=== PATIENT | female | born 1955 | race Two or more races ===

== ENCOUNTER 2022-07-05 17:31 | Inpatient (IN) | payer MEDICAID ==
[~2022-07-05] VITALS: Ht 157.5 cm; Wt 64.2 kg
[2022-07-05 19:12] LABS: Basophils # (auto) 0 10 ^3/uL (0-0.2); Basophils % (auto) 0.5 % (0.0-2.0); Eosinophils # (auto) 0 10 ^3/uL (0-0.8); Monocytes # (auto) 0.1 10 ^3/uL (0-1.3); Monocytes % (auto) 2.4 % (0.0-12.0); Neutrophils # (auto) 5.9 10 ^3/uL (1.6-8.6)
[2022-07-05 19:14] LABS: Eosinophils % (auto) 0.1 % (0.0-7.0); Hematocrit 27.6 % (36.0-46.0); Hemoglobin 8.7 g/dL (12.2-16.2); Lymphocytes # (auto) 0.1 10 ^3/uL (0.4-5.4); Mean Corpuscular Hemoglobin 28.2 pg (28.0-32.0); Mean Corpuscular Hgb Conc. 31.5 g/dL (32.0-36.0); Mean Corpuscular Volume 89.6 fL (80.0-100.0); Nucleated Red Blood Cells % 0.2 %; Red Blood Cells 3.08 10^6/uL (4.0-5.20); White Blood Cell 6.2 10^3/uL (4.4-10.8)
[2022-07-05 19:18] LABS: Red Cell Distribution Width 21.2 % (11.8-14.3)
[2022-07-05 19:35] LABS: Albumin 1.3 g/dL (3.4-5.0); Calcium 7.1 mg/dL (8.5-10.1); Potassium 3.8 mmol/L (3.5-5.1)
[2022-07-05 19:45] LABS: Bilirubin, Total 0.5 mg/dL (0.2-1.0); Total Protein 4.6 g/dL (6.4-8.2)
[2022-07-05 20:54] LABS: BUN/Creatinine Ratio 35.1 (10.0-20.0)
[2022-07-05] MEDS ORDERED: ALBUTEROL SULF 2.5 MG/0.5ML(0.5%) NEB SOLN NEB ONE (21:30)
[2022-07-05] MEDS ORDERED: FUROSEMIDE 20 MG/2 ML VIAL IV ONE (21:30)
[2022-07-05] MEDS ORDERED: ALBUMIN 25% 100 ML IV ONE (21:30)
[2022-07-05] MEDS ORDERED: IOHEXOL 350 MG/ML 100ML IJ ONE (23:23)
[2022-07-06] VITALS (30 sets, daily range): BP systolic 103–132; BP diastolic 48–76
[2022-07-06] MEDS ORDERED: ONDANSETRON HCL 4 MG/2 ML VIAL IV ONE (00:15)
[2022-07-06] MEDS ORDERED: MORPHINE SULFATE 4 MG/ML SYR/VIAL IV ONE (00:15)
[2022-07-06 01:05] LABS: Lactic Acid w/Reflex 4.2 mmol/L (0.4-2.0)
[2022-07-06 01:17] LABS: Urine Bacteria NONE SEEN /hpf (None Seen); Urine Blood Negative /uL (Negative); Urine Hyaline Cast FEW /lpf (0 - 2); Urine Specific Gravity 1.018 (1.001-1.035); Urine WBC 1 /hpf (0 - 5)
[2022-07-06] MEDS ORDERED: NITROGLYCERIN 0.4 MG SL TAB SL PRN (02:30)
[2022-07-06] MEDS: AZITHROMYCIN 500MG/ 250ML 250 ML IV SCH ×2 (03:15→22:00)
[2022-07-06] MEDS: cefTRIAXone 1GM/50ML D5W 50 ML IV SCH ×2 (03:19→21:00)
[2022-07-06] MEDS: ALBUMIN 25% 100 ML IV SCH ×3 (04:26→05:35)
[2022-07-06] MEDS: FUROSEMIDE 20 MG/2 ML VIAL IV SCH ×2 (08:34→20:40)
[2022-07-06 08:49] LABS: INR 1.39 (0.9-1.15); Partial Thromboplastin Time 54.9 sec (24.6-33.4)
[2022-07-06] MEDS: CLOPIDOGREL BISULFATE 75 MG TAB PO SCH (09:57)
[2022-07-06] MEDS: ASPirin 81 mg TAB PO SCH (09:57)
[2022-07-06] MEDS: ENOXAPARIN SOD 40 MG/0.4 ML SYRINGE SC SCH (09:58)
[2022-07-06] MEDS ORDERED: methylPREDNISolone SOD SUCC 125 MG/2 ML VL IV SCH (10:00)
[2022-07-06] MEDS ORDERED: amLODIPine BESYLATE 5 MG TAB PO SCH (10:00)
[2022-07-06] MEDS: ANAKINRA SC SCH ×2 (10:00→12:29)
[2022-07-06] MEDS ORDERED: PANTOPRAZOLE 40 MG TAB PO SCH (10:00)
[2022-07-06] MEDS: ZINC SULFATE 220mg CAP or TAB PO SCH (10:51)
[2022-07-06] MEDS: GABAPENTIN 100 MG CAP PO SCH (10:51)
[2022-07-06] MEDS: MULTIPLE VITAMIN TAB PO SCH (10:51)
[2022-07-06] MEDS: ASCORBIC ACID 500 MG TAB PO SCH ×2 (10:53→22:00)
[2022-07-06] MEDS ORDERED: ACET325T10 PO (13:09)
[2022-07-06] MEDS ORDERED: FURO20TA3 PO (13:09)
[2022-07-06] MEDS ORDERED: OYST500T48 OR (13:09)
[2022-07-06] MEDS ORDERED: AMLO-489 PO (13:09)
[2022-07-06] MEDS ORDERED: SULF400T PO (13:09)
[2022-07-06] MEDS ORDERED: CLOP75TA70 PO (13:09)
[2022-07-06] MEDS ORDERED: THIA100T5 PO (13:09)
[2022-07-06] MEDS ORDERED: MELA2.5C2 OR (13:09)
[2022-07-06] MEDS ORDERED: PANT40T PO (13:09)
[2022-07-06] MEDS ORDERED: LINE1TAB10 PO (13:09)
[2022-07-06] MEDS ORDERED: TELM1TAB37 PO (13:09)
[2022-07-06] MEDS ORDERED: GAB100C GT (13:09)
[2022-07-06] MEDS ORDERED: PRED2.5T4 PO (13:09)
[2022-07-06] MEDS ORDERED: VANC125C3 PO (13:09)
[2022-07-06] MEDS ORDERED: MULT-624 OR (13:09)
[2022-07-06] MEDS ORDERED: REMDESIVIR PER PHARMACY 0 ML IV SCH (14:15)
[2022-07-06] MEDS ORDERED: REMDESIVIR 200 MG in NS 210ml LOADING DOSE ADULT IV ONE (15:00)
[2022-07-06] MEDS ORDERED: SODIUM BICARBONATE 8.4 % INJ 50ML VIAL IV ONE (15:30)
[2022-07-06] MEDS: ONDANSETRON HCL 4 MG/2 ML VIAL IV PRN (15:55)
[2022-07-06] MEDS: LORazepam 2MG/ML-1ML VIAL IV PRN ×2 (15:55→21:55)
[2022-07-06] MEDS ORDERED: PPN PER PHARMACY 0 ML IV SCH (16:15)
[2022-07-06 17:06] LABS: Albumin 2.5 g/dL (3.4-5.0); Calcium 7.2 mg/dL (8.5-10.1); Magnesium 1.9 mg/dL (1.6-2.6); Potassium 3.1 mmol/L (3.5-5.1)
[2022-07-06 17:09] LABS: BUN/Creatinine Ratio 43.1 (10.0-20.0); Phosphorus 4.1 mg/dL (2.5-4.90); Total Protein 4.4 g/dL (6.4-8.2)
[2022-07-06] MEDS ORDERED: POTASSIUM CHL 20MEQ/100ML 100 ML IV ONE (18:00)
[2022-07-06] MEDS: AMINO ACID INFUSION IN D10W 1,000 ML IV NR (20:00)
[2022-07-07] VITALS (85 sets, daily range): BP systolic 91–125; BP diastolic 44–65
[2022-07-07] MEDS ORDERED: ATOR-47 PO (00:53)
[2022-07-07] MEDS ORDERED: FOLI1TAB6 PO (00:53)
[2022-07-07] MEDS: ALBUTEROL SULF 2.5 MG/0.5ML(0.5%) NEB SOLN NEB PRN ×2 (05:43→19:00)
[2022-07-07] MEDS: FUROSEMIDE 20 MG/2 ML VIAL IV SCH ×2 (06:00→21:11)
[2022-07-07 06:06] LABS: Potassium 3.6 mmol/L (3.5-5.1)
[2022-07-07 06:12] LABS: Albumin 2.4 g/dL (3.4-5.0); BUN/Creatinine Ratio 37.7 (10.0-20.0); Bilirubin, Total 0.7 mg/dL (0.2-1.0); Calcium 7.2 mg/dL (8.5-10.1); Magnesium 1.8 mg/dL (1.6-2.6); Phosphorus 4.6 mg/dL (2.5-4.90); Total Protein 4.1 g/dL (6.4-8.2)
[2022-07-07 08:21] LABS: Basophils # (auto) 0 10 ^3/uL (0-0.2); Nucleated Red Blood Cells % 0.8 %
[2022-07-07 08:23] LABS: Basophils % (auto) 0.5 % (0.0-2.0); Eosinophils # (auto) 0.1 10 ^3/uL (0-0.8); Eosinophils % (auto) 3.5 % (0.0-7.0); Hematocrit 17.7 % (36.0-46.0); Lymphocytes # (auto) 0.2 10 ^3/uL (0.4-5.4); Lymphocytes % (auto) 7.1 % (10.0-50.0); Mean Corpuscular Hemoglobin 29.2 pg (28.0-32.0); Mean Corpuscular Hgb Conc. 33.9 g/dL (32.0-36.0); Monocytes # (auto) 0.2 10 ^3/uL (0-1.3); Monocytes % (auto) 4.8 % (0.0-12.0); Neutrophils # (auto) 2.7 10 ^3/uL (1.6-8.6); Neutrophils % (auto) 84.1 % (37.0-80.0); Red Blood Cells 2.06 10^6/uL (4.0-5.20); White Blood Cell 3.2 10^3/uL (4.4-10.8)
[2022-07-07 08:34] LABS: Red Cell Distribution Width 20.1 % (11.8-14.3)
[2022-07-07] MEDS: LORazepam 2MG/ML-1ML VIAL IV PRN (08:48)
[2022-07-07] MEDS: MULTIPLE VITAMIN TAB PO SCH (10:00)
[2022-07-07] MEDS: ZINC SULFATE 220mg CAP or TAB PO SCH (10:00)
[2022-07-07] MEDS: GABAPENTIN 100 MG CAP PO SCH (10:00)
[2022-07-07] MEDS: CLOPIDOGREL BISULFATE 75 MG TAB PO SCH (10:00)
[2022-07-07] MEDS: ASPirin 81 mg TAB PO SCH (10:00)
[2022-07-07] MEDS: ASCORBIC ACID 500 MG TAB PO SCH ×2 (10:00→22:00)
[2022-07-07] MEDS ORDERED: FUROSEMIDE 20 MG/2 ML VIAL IV ONE (10:15)
[2022-07-07] MEDS: PANTOPRAZOLE 40 MG/10 ML VIAL INJ IV SCH (10:37)
[2022-07-07] MEDS: DexAMETHasone SOD PHOS 10MG/1ML VIAL INJ IV SCH (10:37)
[2022-07-07] MEDS: ANAKINRA SC SCH (10:37)
[2022-07-07 10:55] LABS: % Iron Saturation 74.4 % (15-50)
[2022-07-07] MEDS: ENOXAPARIN SOD 40 MG/0.4 ML SYRINGE SC SCH (11:03)
[2022-07-07 11:14] LABS: Ferritin > 1650.0 ng/mL (10-322)
[2022-07-07 11:15] LABS: Folate (Folic Acid) 22.32 ng/mL (5.38-24)
[2022-07-07] MEDS ORDERED: DEXTROSE (50%) 50ML SYRG IV SCH (12:00)
[2022-07-07] MEDS: InsuLIN REG 1unit/0.01ml Soln (100units/ml) SC SCH ×2 (13:00→18:26)
[2022-07-07] MEDS: ACCU-CHEK COMFORT CURVE STRIP VI SCH ×2 (13:00→18:08)
[2022-07-07] MEDS: AMINO ACID INFUSION IN D10W 1,000 ML IV NR (19:49)
[2022-07-07] MEDS ORDERED: PPN PER PHARMACY IV NR ×8 (20:00)
[2022-07-07] MEDS: REMDESIVIR 100mg 100 MG in SODIUM CHL 0.9% 230 ML IV SCH (21:10)
[2022-07-07] MEDS: cefTRIAXone 1GM/50ML D5W 50 ML IV SCH (23:02)
[2022-07-08] VITALS (35 sets, daily range): BP systolic 101–192; BP diastolic 39–100
[2022-07-08] MEDS: AZITHROMYCIN 500MG/ 250ML 250 ML IV SCH ×2 (00:39→22:09)
[2022-07-08] MEDS: ACCU-CHEK COMFORT CURVE STRIP VI SCH ×5 (00:39→23:18)
[2022-07-08] MEDS: InsuLIN REG 1unit/0.01ml Soln (100units/ml) SC SCH ×5 (00:40→23:16)
[2022-07-08] MEDS ORDERED: LORazepam 2MG/ML-1ML VIAL IV ONE (03:00)
[2022-07-08] MEDS: MORPHINE SULFATE INJ 2 MG/ml SYRG IV PRN ×2 (04:20→22:56)
[2022-07-08] MEDS: FUROSEMIDE 20 MG/2 ML VIAL IV SCH (06:22)
[2022-07-08 06:27] LABS: BUN/Creatinine Ratio 36.5 (10.0-20.0); Bilirubin, Total 0.9 mg/dL (0.2-1.0); Calcium 7.6 mg/dL (8.5-10.1); Magnesium 1.5 mg/dL (1.6-2.6); Phosphorus 2.1 mg/dL (2.5-4.90); Total Protein 4.1 g/dL (6.4-8.2)
[2022-07-08 06:46] LABS: Potassium 2.7 mmol/L (3.5-5.1)
[2022-07-08] MEDS: POTASSIUM CHL 20MEQ/100ML 100 ML IV SCH ×2 (07:46→09:00)
[2022-07-08 08:29] LABS: Basophils # (auto) 0 10 ^3/uL (0-0.2); Basophils % (auto) 0.3 % (0.0-2.0); Eosinophils # (auto) 0 10 ^3/uL (0-0.8); Eosinophils % (auto) 0.1 % (0.0-7.0); Lymphocytes # (auto) 0.3 10 ^3/uL (0.4-5.4); Mean Corpuscular Hgb Conc. 34.2 g/dL (32.0-36.0); Monocytes # (auto) 0.3 10 ^3/uL (0-1.3); Neutrophils # (auto) 3.2 10 ^3/uL (1.6-8.6); White Blood Cell 3.7 10^3/uL (4.4-10.8)
[2022-07-08 08:31] LABS: Hematocrit 30.8 % (36.0-46.0); Hemoglobin 10.5 g/dL (12.2-16.2); Lymphocytes % (auto) 7.6 % (10.0-50.0); Mean Corpuscular Hemoglobin 28.8 pg (28.0-32.0); Mean Corpuscular Volume 84.4 fL (80.0-100.0); Monocytes % (auto) 7.5 % (0.0-12.0); Neutrophils % (auto) 84.5 % (37.0-80.0); Red Blood Cells 3.65 10^6/uL (4.0-5.20); Red Cell Distribution Width 17.9 % (11.8-14.3)
[2022-07-08] MEDS: LORazepam 2MG/ML-1ML VIAL IV PRN ×2 (09:37)
[2022-07-08] MEDS: PANTOPRAZOLE 40 MG/10 ML VIAL INJ IV SCH (09:51)
[2022-07-08] MEDS: MAGNESIUM SULFATE 1GM/100ML 100 ML IV SCH ×2 (09:52→11:24)
[2022-07-08] MEDS: DexAMETHasone SOD PHOS 10MG/1ML VIAL INJ IV SCH (09:52)
[2022-07-08] MEDS: ASCORBIC ACID 500 MG TAB PO SCH ×2 (10:00→21:21)
[2022-07-08] MEDS: CLOPIDOGREL BISULFATE 75 MG TAB PO SCH (10:00)
[2022-07-08] MEDS: MULTIPLE VITAMIN TAB PO SCH (10:00)
[2022-07-08] MEDS: ZINC SULFATE 220mg CAP or TAB PO SCH (10:00)
[2022-07-08] MEDS: ASPirin 81 mg TAB PO SCH (10:00)
[2022-07-08] MEDS: CHOLECALCIFEROL (VITD3) 2,000 UNIT CAP/TAB PO SCH (10:00)
[2022-07-08] MEDS: GABAPENTIN 100 MG CAP PO SCH (10:00)
[2022-07-08] MEDS ORDERED: LIDOCAINE 1% (LOCAL ANESTH.) PF 5ml SDV ID ONE (11:00)
[2022-07-08] MEDS: ANAKINRA SC SCH (11:26)
[2022-07-08] MEDS ORDERED: POTASSIUM PHOSPHATE 44 MEQ in D5W 5% 250 ML IV ONE (12:00)
[2022-07-08] MEDS ORDERED: TPN PER PHARMACY 0 ML IV SCH (13:15)
[2022-07-08] MEDS: LABETALOL HCL 5 MG/ML 4ML SYRINGE IV PRN ×2 (13:41→16:55)
[2022-07-08] MEDS: REMDESIVIR 100mg 100 MG in SODIUM CHL 0.9% 230 ML IV SCH (15:00)
[2022-07-08] MEDS: FUROSEMIDE 40 MG/4 ML VIAL IV SCH (17:56)
[2022-07-08] MEDS ORDERED: TPN PER PHARMACY IV NR ×10 (20:00)
[2022-07-08] MEDS: SODIUM CHLOR 0.9% PF (SALINE LOCK) 10ML VIAL/SYR IV SCH (21:25)
[2022-07-08] MEDS: cefTRIAXone 1GM/50ML D5W 50 ML IV SCH (21:25)
[2022-07-09] VITALS (31 sets, daily range): BP systolic 106–178; BP diastolic 56–100
[2022-07-09] MEDS: FUROSEMIDE 40 MG/4 ML VIAL IV SCH ×2 (06:09→17:41)
[2022-07-09] MEDS: InsuLIN REG 1unit/0.01ml Soln (100units/ml) SC SCH ×3 (06:11→17:42)
[2022-07-09] MEDS: ACCU-CHEK COMFORT CURVE STRIP VI SCH ×3 (06:11→17:41)
[2022-07-09] MEDS: MORPHINE SULFATE INJ 2 MG/ml SYRG IV PRN ×4 (06:18→21:14)
[2022-07-09 06:24] LABS: Albumin 2.2 g/dL (3.4-5.0); Calcium 7.6 mg/dL (8.5-10.1); Potassium 3.1 mmol/L (3.5-5.1)
[2022-07-09 06:41] LABS: BUN/Creatinine Ratio 43.4 (10.0-20.0); Bilirubin, Total 0.9 mg/dL (0.2-1.0); Phosphorus 1.8 mg/dL (2.5-4.90); Total Protein 4.2 g/dL (6.4-8.2)
[2022-07-09] MEDS ORDERED: POTASSIUM CHL 20MEQ/100ML 100 ML IV ONE (09:00)
[2022-07-09] MEDS: SODIUM CHLOR 0.9% PF (SALINE LOCK) 10ML VIAL/SYR IV SCH ×2 (09:49→21:16)
[2022-07-09] MEDS: PANTOPRAZOLE 40 MG/10 ML VIAL INJ IV SCH (09:49)
[2022-07-09] MEDS: DexAMETHasone SOD PHOS 10MG/1ML VIAL INJ IV SCH (09:49)
[2022-07-09] MEDS: ANAKINRA SC SCH (09:52)
[2022-07-09] MEDS: CHOLECALCIFEROL (VITD3) 2,000 UNIT CAP/TAB PO SCH (10:00)
[2022-07-09] MEDS: MULTIPLE VITAMIN TAB PO SCH (10:00)
[2022-07-09] MEDS: GABAPENTIN 100 MG CAP PO SCH (10:00)
[2022-07-09] MEDS: ASCORBIC ACID 500 MG TAB PO SCH ×2 (10:00→21:16)
[2022-07-09] MEDS: ZINC SULFATE 220mg CAP or TAB PO SCH (10:00)
[2022-07-09] MEDS ORDERED: LINEZOLID 600MG/300ML 300 ML IV SCH (10:00)
[2022-07-09] MEDS: CLOPIDOGREL BISULFATE 75 MG TAB PO SCH (10:00)
[2022-07-09] MEDS: ASPirin 81 mg TAB PO SCH (10:00)
[2022-07-09] MEDS ORDERED: POTASSIUM PHOSPHATE 44 MEQ in D5W 5% 250 ML IV ONE (11:00)
[2022-07-09] MEDS ORDERED: VANCOMYCIN PER PHARMACY 0 MG IV SCH (14:00)
[2022-07-09] MEDS: CEFEPIME 1GM/ 50ML 50 ML IV SCH ×2 (14:17→22:24)
[2022-07-09] MEDS: VANCOMYCIN 1GM/250ML 250 ML IV SCH (17:21)
[2022-07-09] MEDS ORDERED: TPN PER PHARMACY IV NR ×11 (20:00)
[2022-07-09] MEDS: ALBUTEROL SULF 2.5 MG/0.5ML(0.5%) NEB SOLN NEB PRN (22:22)
[2022-07-10] VITALS (33 sets, daily range): BP systolic 128–154; BP diastolic 70–89
[2022-07-10] MEDS: ACCU-CHEK COMFORT CURVE STRIP VI SCH ×4 (00:20→18:05)
[2022-07-10] MEDS: VANCOMYCIN 1GM/250ML 250 ML IV SCH ×2 (05:00→19:01)
[2022-07-10] MEDS: CEFEPIME 1GM/ 50ML 50 ML IV SCH ×3 (05:57→22:01)
[2022-07-10] MEDS: FUROSEMIDE 40 MG/4 ML VIAL IV SCH ×2 (05:57→18:05)
[2022-07-10] MEDS: InsuLIN REG 1unit/0.01ml Soln (100units/ml) SC SCH ×4 (05:58→18:06)
[2022-07-10] MEDS: MORPHINE SULFATE INJ 2 MG/ml SYRG IV PRN ×4 (06:20→20:46)
[2022-07-10 06:30] LABS: Basophils # (auto) 0 10 ^3/uL (0-0.2); Eosinophils # (auto) 0 10 ^3/uL (0-0.8); Eosinophils % (auto) 0.1 % (0.0-7.0); Hemoglobin 11.6 g/dL (12.2-16.2); Lymphocytes # (auto) 0.4 10 ^3/uL (0.4-5.4); Monocytes # (auto) 0.3 10 ^3/uL (0-1.3)
[2022-07-10 06:33] LABS: Basophils % (auto) 0.2 % (0.0-2.0); Hematocrit 34.4 % (36.0-46.0); Lymphocytes % (auto) 7.2 % (10.0-50.0); Mean Corpuscular Hemoglobin 28.1 pg (28.0-32.0); Mean Corpuscular Hgb Conc. 33.6 g/dL (32.0-36.0); Mean Corpuscular Volume 83.7 fL (80.0-100.0); Monocytes % (auto) 6.2 % (0.0-12.0); Neutrophils # (auto) 4.7 10 ^3/uL (1.6-8.6); Neutrophils % (auto) 86.3 % (37.0-80.0); Nucleated Red Blood Cells % 0.6 %; Red Blood Cells 4.12 10^6/uL (4.0-5.20); Red Cell Distribution Width 18.7 % (11.8-14.3); White Blood Cell 5.5 10^3/uL (4.4-10.8)
[2022-07-10 06:36] LABS: Calcium 7.5 mg/dL (8.5-10.1); Magnesium 1.7 mg/dL (1.6-2.6); Potassium 3.6 mmol/L (3.5-5.1)
[2022-07-10 06:52] LABS: BUN/Creatinine Ratio 54.2 (10.0-20.0); Bilirubin, Total 1.1 mg/dL (0.2-1.0); Phosphorus 2.4 mg/dL (2.5-4.90); Total Protein 4.4 g/dL (6.4-8.2)
[2022-07-10] MEDS: PANTOPRAZOLE 40 MG/10 ML VIAL INJ IV SCH (09:45)
[2022-07-10] MEDS: SODIUM CHLOR 0.9% PF (SALINE LOCK) 10ML VIAL/SYR IV SCH ×2 (09:45→22:01)
[2022-07-10] MEDS: DexAMETHasone SOD PHOS 10MG/1ML VIAL INJ IV SCH (09:45)
[2022-07-10] MEDS: GABAPENTIN 100 MG CAP PO SCH (10:00)
[2022-07-10] MEDS: MULTIPLE VITAMIN TAB PO SCH (10:00)
[2022-07-10] MEDS: ASCORBIC ACID 500 MG TAB PO SCH ×2 (10:00→22:00)
[2022-07-10] MEDS: FLORASTOR (S. BOULARDII) 250 MG CAP PO SCH (10:00)
[2022-07-10] MEDS: CHOLECALCIFEROL (VITD3) 2,000 UNIT CAP/TAB PO SCH (10:00)
[2022-07-10] MEDS: CLOPIDOGREL BISULFATE 75 MG TAB PO SCH (10:00)
[2022-07-10] MEDS: ZINC SULFATE 220mg CAP or TAB PO SCH (10:00)
[2022-07-10] MEDS: ASPirin 81 mg TAB PO SCH (10:00)
[2022-07-10] MEDS: TROLAMINE SALICYLATE 10% TOP CREAM TOP PRN (11:11)
[2022-07-10] MEDS ORDERED: TPN PER PHARMACY IV NR ×12 (20:00)
[2022-07-11] VITALS (33 sets, daily range): BP systolic 129–166; BP diastolic 73–94
[2022-07-11] MEDS: ACCU-CHEK COMFORT CURVE STRIP VI SCH ×5 (00:07→23:38)
[2022-07-11] MEDS: MORPHINE SULFATE INJ 2 MG/ml SYRG IV PRN ×3 (03:48→21:23)
[2022-07-11] MEDS: InsuLIN REG 1unit/0.01ml Soln (100units/ml) SC SCH ×5 (06:29→23:40)
[2022-07-11] MEDS: FUROSEMIDE 40 MG/4 ML VIAL IV SCH ×2 (06:35→17:59)
[2022-07-11] MEDS: CEFEPIME 1GM/ 50ML 50 ML IV SCH ×3 (06:36→22:00)
[2022-07-11 07:25] LABS: Calcium 7.8 mg/dL (8.5-10.1); Magnesium 2.1 mg/dL (1.6-2.6); Potassium 3.3 mmol/L (3.5-5.1)
[2022-07-11 07:42] LABS: Bilirubin, Total 1.3 mg/dL (0.2-1.0); Phosphorus 2.7 mg/dL (2.5-4.90); Total Protein 4.6 g/dL (6.4-8.2)
[2022-07-11] MEDS: POTASSIUM CHL 20MEQ/100ML 100 ML IV SCH ×2 (08:50→11:53)
[2022-07-11] MEDS: VANCOMYCIN 1GM/250ML 250 ML IV SCH (09:00)
[2022-07-11] MEDS: DexAMETHasone SOD PHOS 10MG/1ML VIAL INJ IV SCH (09:55)
[2022-07-11] MEDS: PANTOPRAZOLE 40 MG/10 ML VIAL INJ IV SCH (09:55)
[2022-07-11] MEDS: SODIUM CHLOR 0.9% PF (SALINE LOCK) 10ML VIAL/SYR IV SCH ×2 (09:59→21:24)
[2022-07-11] MEDS: CHOLECALCIFEROL (VITD3) 2,000 UNIT CAP/TAB PO SCH (10:00)
[2022-07-11] MEDS: ZINC SULFATE 220mg CAP or TAB PO SCH (10:00)
[2022-07-11] MEDS: MULTIPLE VITAMIN TAB PO SCH (10:00)
[2022-07-11] MEDS: CLOPIDOGREL BISULFATE 75 MG TAB PO SCH (10:00)
[2022-07-11] MEDS: ASPirin 81 mg TAB PO SCH (10:00)
[2022-07-11] MEDS: ASCORBIC ACID 500 MG TAB PO SCH ×2 (10:00→22:00)
[2022-07-11] MEDS: GABAPENTIN 100 MG CAP PO SCH (10:00)
[2022-07-11] MEDS ORDERED: ACYCLOVIR 5MG/KG Q8HR PER RX 0 ML IV SCH (10:00)
[2022-07-11] MEDS: FLORASTOR (S. BOULARDII) 250 MG CAP PO SCH (10:00)
[2022-07-11] MEDS: ACYCLOVIR SOD 50MG/ML 250 MG in D5W 5% 100 ML IV SCH ×2 (12:25→21:24)
[2022-07-11] MEDS: LORazepam 2MG/ML-1ML VIAL IV PRN (14:40)
[2022-07-11] MEDS: TPN PER PHARMACY IV NR ×12 (19:59)
[2022-07-11] MEDS: LABETALOL HCL 5 MG/ML 4ML SYRINGE IV PRN ×2 (21:30→22:41)
[2022-07-12] VITALS (30 sets, daily range): BP systolic 113–173; BP diastolic 66–93
[2022-07-12] MEDS: LORazepam 2MG/ML-1ML VIAL IV PRN ×2 (01:15→18:20)
[2022-07-12] MEDS: LABETALOL HCL 5 MG/ML 4ML SYRINGE IV PRN (02:06)
[2022-07-12] MEDS: FUROSEMIDE 40 MG/4 ML VIAL IV SCH ×2 (06:00→18:15)
[2022-07-12] MEDS: ACCU-CHEK COMFORT CURVE STRIP VI SCH ×3 (06:01→18:43)
[2022-07-12] MEDS: CEFEPIME 1GM/ 50ML 50 ML IV SCH ×2 (06:01→14:06)
[2022-07-12] MEDS: InsuLIN REG 1unit/0.01ml Soln (100units/ml) SC SCH ×3 (06:02→18:44)
[2022-07-12 06:09] LABS: Basophils # (auto) 0 10 ^3/uL (0-0.2); Eosinophils # (auto) 0 10 ^3/uL (0-0.8); Eosinophils % (auto) 0.2 % (0.0-7.0); Hematocrit 32.6 % (36.0-46.0); Lymphocytes # (auto) 0.3 10 ^3/uL (0.4-5.4); Monocytes # (auto) 0.8 10 ^3/uL (0-1.3); Neutrophils # (auto) 3.9 10 ^3/uL (1.6-8.6)
[2022-07-12 06:11] LABS: Basophils % (auto) 0.5 % (0.0-2.0); Hemoglobin 10.7 g/dL (12.2-16.2); Lymphocytes % (auto) 5.9 % (10.0-50.0); Mean Corpuscular Hemoglobin 28.1 pg (28.0-32.0); Mean Corpuscular Hgb Conc. 32.8 g/dL (32.0-36.0); Mean Corpuscular Volume 85.6 fL (80.0-100.0); Monocytes % (auto) 16.3 % (0.0-12.0); Neutrophils % (auto) 77.1 % (37.0-80.0); Nucleated Red Blood Cells % 0.2 %; Red Cell Distribution Width 18.6 % (11.8-14.3)
[2022-07-12 07:09] LABS: Albumin 2.2 g/dL (3.4-5.0); Calcium 7.9 mg/dL (8.5-10.1); Magnesium 2.1 mg/dL (1.6-2.6); Potassium 3.8 mmol/L (3.5-5.1)
[2022-07-12 07:12] LABS: BUN/Creatinine Ratio 122.9 (10.0-20.0)
[2022-07-12 07:26] LABS: Bilirubin, Total 1.5 mg/dL (0.2-1.0); Phosphorus 3.4 mg/dL (2.5-4.90); Total Protein 4.5 g/dL (6.4-8.2)
[2022-07-12] MEDS: DexAMETHasone SOD PHOS 10MG/1ML VIAL INJ IV SCH (09:28)
[2022-07-12] MEDS: PANTOPRAZOLE 40 MG/10 ML VIAL INJ IV SCH (09:28)
[2022-07-12] MEDS: SODIUM CHLOR 0.9% PF (SALINE LOCK) 10ML VIAL/SYR IV SCH ×2 (09:29→23:05)
[2022-07-12] MEDS: FLORASTOR (S. BOULARDII) 250 MG CAP PO SCH (10:00)
[2022-07-12] MEDS: ASPirin 81 mg TAB PO SCH (10:00)
[2022-07-12] MEDS: MULTIPLE VITAMIN TAB PO SCH (10:00)
[2022-07-12] MEDS: GABAPENTIN 100 MG CAP PO SCH (10:00)
[2022-07-12] MEDS: ZINC SULFATE 220mg CAP or TAB PO SCH (10:00)
[2022-07-12] MEDS ORDERED: VANCOMYCIN 1GM/250ML 250 ML IV SCH (10:00)
[2022-07-12] MEDS: ASCORBIC ACID 500 MG TAB PO SCH ×2 (10:00→22:00)
[2022-07-12] MEDS: CHOLECALCIFEROL (VITD3) 2,000 UNIT CAP/TAB PO SCH (10:00)
[2022-07-12] MEDS: CLOPIDOGREL BISULFATE 75 MG TAB PO SCH (10:00)
[2022-07-12] MEDS: ACYCLOVIR SOD 50MG/ML 250 MG in D5W 5% 100 ML IV SCH ×2 (11:00→23:04)
[2022-07-12] MEDS: TPN PER PHARMACY IV NR ×12 (19:45)
[2022-07-12] MEDS ORDERED: TPN PER PHARMACY IV NR ×21 (20:00)
[2022-07-13] VITALS (30 sets, daily range): BP systolic 112–170; BP diastolic 58–95
[2022-07-13] MEDS: CEFEPIME 1GM/ 50ML 50 ML IV SCH ×4 (00:28→23:17)
[2022-07-13] MEDS: ACCU-CHEK COMFORT CURVE STRIP VI SCH ×4 (00:28→18:07)
[2022-07-13] MEDS: InsuLIN REG 1unit/0.01ml Soln (100units/ml) SC SCH ×4 (00:31→18:29)
[2022-07-13 04:50] LABS: Basophils # (auto) 0 10 ^3/uL (0-0.2); Eosinophils # (auto) 0 10 ^3/uL (0-0.8); Hemoglobin 9.7 g/dL (12.2-16.2); Lymphocytes # (auto) 0.3 10 ^3/uL (0.4-5.4); Monocytes # (auto) 0.8 10 ^3/uL (0-1.3); White Blood Cell 4.5 10^3/uL (4.4-10.8)
[2022-07-13] MEDS: LORazepam 2MG/ML-1ML VIAL IV PRN (04:51)
[2022-07-13 04:53] LABS: Basophils % (auto) 0.2 % (0.0-2.0); Eosinophils % (auto) 0.1 % (0.0-7.0); Hematocrit 31.3 % (36.0-46.0); Lymphocytes % (auto) 6.3 % (10.0-50.0); Mean Corpuscular Hemoglobin 29.4 pg (28.0-32.0); Mean Corpuscular Hgb Conc. 31.1 g/dL (32.0-36.0); Mean Corpuscular Volume 94.6 fL (80.0-100.0); Monocytes % (auto) 17.9 % (0.0-12.0); Neutrophils # (auto) 3.4 10 ^3/uL (1.6-8.6); Neutrophils % (auto) 75.5 % (37.0-80.0); Nucleated Red Blood Cells % 0.1 %; Red Blood Cells 3.31 10^6/uL (4.0-5.20)
[2022-07-13] MEDS: FUROSEMIDE 40 MG/4 ML VIAL IV SCH (06:20)
[2022-07-13 09:36] LABS: Potassium 3.5 mmol/L (3.5-5.1)
[2022-07-13] MEDS: CLOPIDOGREL BISULFATE 75 MG TAB PO SCH (10:00)
[2022-07-13] MEDS: CHOLECALCIFEROL (VITD3) 2,000 UNIT CAP/TAB PO SCH (10:00)
[2022-07-13] MEDS: ASCORBIC ACID 500 MG TAB PO SCH ×2 (10:00→21:55)
[2022-07-13] MEDS: ZINC SULFATE 220mg CAP or TAB PO SCH (10:00)
[2022-07-13] MEDS: ASPirin 81 mg TAB PO SCH (10:00)
[2022-07-13] MEDS: GABAPENTIN 100 MG CAP PO SCH (10:00)
[2022-07-13] MEDS: MULTIPLE VITAMIN TAB PO SCH (10:00)
[2022-07-13] MEDS: FLORASTOR (S. BOULARDII) 250 MG CAP PO SCH (10:00)
[2022-07-13 10:18] LABS: Albumin 2.1 g/dL (3.4-5.0); BUN/Creatinine Ratio 137.1 (10.0-20.0); Bilirubin, Total 1.8 mg/dL (0.2-1.0); Calcium 8.4 mg/dL (8.5-10.1); Magnesium 2.6 mg/dL (1.6-2.6); Phosphorus 2.6 mg/dL (2.5-4.90)
[2022-07-13] MEDS: DexAMETHasone SOD PHOS 10MG/1ML VIAL INJ IV SCH (10:23)
[2022-07-13] MEDS: ACYCLOVIR SOD 50MG/ML 250 MG in D5W 5% 100 ML IV SCH ×2 (10:28→21:54)
[2022-07-13] MEDS: PANTOPRAZOLE 40 MG/10 ML VIAL INJ IV SCH (10:28)
[2022-07-13] MEDS: SODIUM CHLOR 0.9% PF (SALINE LOCK) 10ML VIAL/SYR IV SCH ×2 (10:37→21:54)
[2022-07-13] MEDS: MORPHINE SULFATE INJ 2 MG/ml SYRG IV PRN (11:38)
[2022-07-13] MEDS ORDERED: TPN PER PHARMACY IV NR ×11 (20:00)
[2022-07-14] VITALS (42 sets, daily range): BP systolic 121–167; BP diastolic 61–83
[2022-07-14] MEDS: ACCU-CHEK COMFORT CURVE STRIP VI SCH ×4 (00:16→17:47)
[2022-07-14] MEDS: InsuLIN REG 1unit/0.01ml Soln (100units/ml) SC SCH ×4 (00:34→17:48)
[2022-07-14 05:32] LABS: Potassium 4.2 mmol/L (3.5-5.1)
[2022-07-14 05:52] LABS: BUN/Creatinine Ratio 141.2 (10.0-20.0); Bilirubin, Total 1.4 mg/dL (0.2-1.0); Calcium 7.9 mg/dL (8.5-10.1); Magnesium 2.7 mg/dL (1.6-2.6); Phosphorus 2.5 mg/dL (2.5-4.90); Total Protein 4.3 g/dL (6.4-8.2)
[2022-07-14] MEDS: CEFEPIME 1GM/ 50ML 50 ML IV SCH ×2 (06:05→15:30)
[2022-07-14 08:17] LABS: Basophils # (auto) 0 10 ^3/uL (0-0.2); Eosinophils # (auto) 0 10 ^3/uL (0-0.8); Hematocrit 27.8 % (36.0-46.0); Lymphocytes # (auto) 0.2 10 ^3/uL (0.4-5.4); Monocytes # (auto) 0.8 10 ^3/uL (0-1.3); Neutrophils # (auto) 4.4 10 ^3/uL (1.6-8.6); Nucleated Red Blood Cells % 0.1 %; Red Blood Cells 3.21 10^6/uL (4.0-5.20); White Blood Cell 5.5 10^3/uL (4.4-10.8)
[2022-07-14 08:19] LABS: Basophils % (auto) 0.2 % (0.0-2.0); Hemoglobin 9.3 g/dL (12.2-16.2); Mean Corpuscular Hgb Conc. 33.5 g/dL (32.0-36.0); Mean Corpuscular Volume 86.6 fL (80.0-100.0); Neutrophils % (auto) 80.8 % (37.0-80.0); Red Cell Distribution Width 18.8 % (11.8-14.3)
[2022-07-14] MEDS: CHOLECALCIFEROL (VITD3) 2,000 UNIT CAP/TAB PO SCH (10:00)
[2022-07-14] MEDS: CLOPIDOGREL BISULFATE 75 MG TAB PO SCH (10:00)
[2022-07-14] MEDS: ZINC SULFATE 220mg CAP or TAB PO SCH (10:00)
[2022-07-14] MEDS: ASCORBIC ACID 500 MG TAB PO SCH ×2 (10:00→22:00)
[2022-07-14] MEDS: GABAPENTIN 100 MG CAP PO SCH (10:00)
[2022-07-14] MEDS: FLORASTOR (S. BOULARDII) 250 MG CAP PO SCH (10:00)
[2022-07-14] MEDS: ASPirin 81 mg TAB PO SCH (10:00)
[2022-07-14] MEDS: MULTIPLE VITAMIN TAB PO SCH (10:00)
[2022-07-14] MEDS: SODIUM CHLOR 0.9% PF (SALINE LOCK) 10ML VIAL/SYR IV SCH ×2 (10:29→22:42)
[2022-07-14] MEDS: FUROSEMIDE 40 MG/4 ML VIAL IV SCH (10:29)
[2022-07-14] MEDS: PANTOPRAZOLE 40 MG/10 ML VIAL INJ IV SCH (10:29)
[2022-07-14] MEDS: DexAMETHasone SOD PHOS 10MG/1ML VIAL INJ IV SCH (10:29)
[2022-07-14] MEDS: ACYCLOVIR SOD 50MG/ML 250 MG in D5W 5% 100 ML IV SCH ×2 (10:30→22:42)
[2022-07-14] MEDS: LORazepam 2MG/ML-1ML VIAL IV PRN (11:55)
[2022-07-14] MEDS: TPN PER PHARMACY IV NR ×8 (20:04)
[2022-07-15] VITALS (43 sets, daily range): BP systolic 138–181; BP diastolic 68–91
[2022-07-15] MEDS: ACCU-CHEK COMFORT CURVE STRIP VI SCH ×4 (00:28→17:42)
[2022-07-15] MEDS: CEFEPIME 1GM/ 50ML 50 ML IV SCH ×3 (00:28→22:50)
[2022-07-15] MEDS: InsuLIN REG 1unit/0.01ml Soln (100units/ml) SC SCH ×4 (00:53→17:11)
[2022-07-15] MEDS: LABETALOL HCL 5 MG/ML 4ML SYRINGE IV PRN ×4 (01:57→21:32)
[2022-07-15 08:06] LABS: Albumin 2.1 g/dL (3.4-5.0); Calcium 8.6 mg/dL (8.5-10.1); Magnesium 2.6 mg/dL (1.6-2.6); Potassium 3.7 mmol/L (3.5-5.1)
[2022-07-15 08:22] LABS: Bilirubin, Total 1.5 mg/dL (0.2-1.0); Phosphorus 2.9 mg/dL (2.5-4.90); Total Protein 5.5 g/dL (6.4-8.2)
[2022-07-15 08:31] LABS: Basophils # (auto) 0 10 ^3/uL (0-0.2); Basophils % (auto) 0.1 % (0.0-2.0); Eosinophils # (auto) 0 10 ^3/uL (0-0.8); Hematocrit 33.4 % (36.0-46.0); Hemoglobin 10.9 g/dL (12.2-16.2); Lymphocytes # (auto) 0.3 10 ^3/uL (0.4-5.4); Lymphocytes % (auto) 3.8 % (10.0-50.0); Mean Corpuscular Hemoglobin 28.7 pg (28.0-32.0); Mean Corpuscular Hgb Conc. 32.8 g/dL (32.0-36.0); Mean Corpuscular Volume 87.6 fL (80.0-100.0); Monocytes % (auto) 10.9 % (0.0-12.0); Neutrophils # (auto) 7.5 10 ^3/uL (1.6-8.6); Neutrophils % (auto) 85.2 % (37.0-80.0); Nucleated Red Blood Cells % 0.1 %; Red Blood Cells 3.81 10^6/uL (4.0-5.20); White Blood Cell 8.8 10^3/uL (4.4-10.8)
[2022-07-15] MEDS: DexAMETHasone SOD PHOS 10MG/1ML VIAL INJ IV SCH (10:45)
[2022-07-15] MEDS: FUROSEMIDE 40 MG/4 ML VIAL IV SCH (10:45)
[2022-07-15] MEDS: PANTOPRAZOLE 40 MG/10 ML VIAL INJ IV SCH (10:45)
[2022-07-15] MEDS: ASPirin 81 mg TAB PO SCH (10:46)
[2022-07-15] MEDS: MULTIPLE VITAMIN TAB PO SCH (10:46)
[2022-07-15] MEDS: ZINC SULFATE 220mg CAP or TAB PO SCH (10:46)
[2022-07-15] MEDS: SODIUM CHLOR 0.9% PF (SALINE LOCK) 10ML VIAL/SYR IV SCH ×2 (10:46→21:13)
[2022-07-15] MEDS: ASCORBIC ACID 500 MG TAB PO SCH ×2 (10:46→21:23)
[2022-07-15] MEDS: CLOPIDOGREL BISULFATE 75 MG TAB PO SCH (10:46)
[2022-07-15] MEDS: GABAPENTIN 100 MG CAP PO SCH (10:47)
[2022-07-15] MEDS: FLORASTOR (S. BOULARDII) 250 MG CAP PO SCH (10:47)
[2022-07-15] MEDS: CHOLECALCIFEROL (VITD3) 2,000 UNIT CAP/TAB PO SCH (10:47)
[2022-07-15] MEDS: ACYCLOVIR SOD 50MG/ML 250 MG in D5W 5% 100 ML IV SCH ×2 (10:48→21:32)
[2022-07-15] MEDS: TPN PER PHARMACY IV NR ×8 (19:56)
[2022-07-15] MEDS ORDERED: TPN PER PHARMACY IV NR ×7 (20:00)
[2022-07-16] VITALS (23 sets, daily range): BP systolic 130–174; BP diastolic 68–89
[2022-07-16] MEDS: ACCU-CHEK COMFORT CURVE STRIP VI SCH ×5 (00:34→23:46)
[2022-07-16] MEDS: InsuLIN REG 1unit/0.01ml Soln (100units/ml) SC SCH ×4 (00:34→17:18)
[2022-07-16] MEDS: LABETALOL HCL 5 MG/ML 4ML SYRINGE IV PRN (00:46)
[2022-07-16] MEDS: LORazepam 2MG/ML-1ML VIAL IV PRN (03:15)
[2022-07-16 06:39] LABS: Albumin 2.2 g/dL (3.4-5.0); Calcium 8.4 mg/dL (8.5-10.1); Potassium 3.1 mmol/L (3.5-5.1)
[2022-07-16 06:56] LABS: BUN/Creatinine Ratio 154.1 (10.0-20.0); Bilirubin, Total 1.3 mg/dL (0.2-1.0); Phosphorus 3.2 mg/dL (2.5-4.90); Total Protein 5.5 g/dL (6.4-8.2)
[2022-07-16] MEDS: DexAMETHasone SOD PHOS 10MG/1ML VIAL INJ IV SCH (09:36)
[2022-07-16] MEDS: POTASSIUM CHL 20MEQ/100ML 100 ML IV SCH ×2 (09:36→11:24)
[2022-07-16] MEDS: ZINC SULFATE 220mg CAP or TAB PO SCH (09:37)
[2022-07-16] MEDS: SODIUM CHLOR 0.9% PF (SALINE LOCK) 10ML VIAL/SYR IV SCH ×2 (09:37→21:54)
[2022-07-16] MEDS: ASPirin 81 mg TAB PO SCH (09:37)
[2022-07-16] MEDS: FUROSEMIDE 40 MG/4 ML VIAL IV SCH (09:37)
[2022-07-16] MEDS: PANTOPRAZOLE 40 MG/10 ML VIAL INJ IV SCH (09:37)
[2022-07-16] MEDS: CHOLECALCIFEROL (VITD3) 2,000 UNIT CAP/TAB PO SCH (09:38)
[2022-07-16] MEDS: ASCORBIC ACID 500 MG TAB PO SCH ×2 (09:38→21:54)
[2022-07-16] MEDS: MULTIPLE VITAMIN TAB PO SCH (09:38)
[2022-07-16] MEDS: FLORASTOR (S. BOULARDII) 250 MG CAP PO SCH (09:38)
[2022-07-16] MEDS: GABAPENTIN 100 MG CAP PO SCH (09:38)
[2022-07-16] MEDS: CLOPIDOGREL BISULFATE 75 MG TAB PO SCH (09:38)
[2022-07-16 09:39] LABS: Basophils # (auto) 0.1 10 ^3/uL (0-0.2); Eosinophils # (auto) 0 10 ^3/uL (0-0.8); Eosinophils % (auto) 0.1 % (0.0-7.0); Hematocrit 31.3 % (36.0-46.0); Lymphocytes # (auto) 0.4 10 ^3/uL (0.4-5.4); Lymphocytes % (auto) 3.1 % (10.0-50.0); Mean Corpuscular Hemoglobin 27.8 pg (28.0-32.0); Mean Corpuscular Hgb Conc. 31.8 g/dL (32.0-36.0); Mean Corpuscular Volume 87.3 fL (80.0-100.0); Monocytes # (auto) 1.4 10 ^3/uL (0-1.3); Monocytes % (auto) 12.2 % (0.0-12.0); Neutrophils # (auto) 9.4 10 ^3/uL (1.6-8.6); Neutrophils % (auto) 83.6 % (37.0-80.0); Red Blood Cells 3.59 10^6/uL (4.0-5.20); Red Cell Distribution Width 18.7 % (11.8-14.3); White Blood Cell 11.3 10^3/uL (4.4-10.8)
[2022-07-16] MEDS: CEFEPIME 1GM/ 50ML 50 ML IV SCH ×2 (09:49→21:53)
[2022-07-16] MEDS: ACYCLOVIR SOD 50MG/ML 250 MG in D5W 5% 100 ML IV SCH ×2 (09:51→21:54)
[2022-07-16] MEDS ORDERED: TPN PER PHARMACY IV NR ×9 (20:00)
[2022-07-16] MEDS: MORPHINE SULFATE INJ 2 MG/ml SYRG IV PRN (22:35)
[2022-07-17] VITALS (22 sets, daily range): BP systolic 145–174; BP diastolic 63–143
[2022-07-17] MEDS: InsuLIN REG 1unit/0.01ml Soln (100units/ml) SC SCH ×4 (00:46→18:29)
[2022-07-17] MEDS: ACCU-CHEK COMFORT CURVE STRIP VI SCH ×3 (05:35→18:30)
[2022-07-17 06:16] LABS: Basophils # (auto) 0 10 ^3/uL (0-0.2); Basophils % (auto) 0.2 % (0.0-2.0); Eosinophils # (auto) 0 10 ^3/uL (0-0.8); Hematocrit 30.4 % (36.0-46.0); Hemoglobin 9.8 g/dL (12.2-16.2); Lymphocytes # (auto) 0.3 10 ^3/uL (0.4-5.4); Lymphocytes % (auto) 2.3 % (10.0-50.0); Mean Corpuscular Hemoglobin 28.4 pg (28.0-32.0); Mean Corpuscular Hgb Conc. 32.3 g/dL (32.0-36.0); Mean Corpuscular Volume 88.1 fL (80.0-100.0); Monocytes # (auto) 1.7 10 ^3/uL (0-1.3); Monocytes % (auto) 13.3 % (0.0-12.0); Neutrophils # (auto) 10.9 10 ^3/uL (1.6-8.6); Neutrophils % (auto) 84.2 % (37.0-80.0); Nucleated Red Blood Cells % 0.1 %; Red Blood Cells 3.45 10^6/uL (4.0-5.20); Red Cell Distribution Width 19.1 % (11.8-14.3)
[2022-07-17 06:31] LABS: Albumin 2.1 g/dL (3.4-5.0); Potassium 3.6 mmol/L (3.5-5.1)
[2022-07-17 06:49] LABS: Bilirubin, Total 1.1 mg/dL (0.2-1.0); Calcium 8.3 mg/dL (8.5-10.1); Magnesium 2.2 mg/dL (1.6-2.6); Phosphorus 2.8 mg/dL (2.5-4.90); Total Protein 5.5 g/dL (6.4-8.2)
[2022-07-17] MEDS ORDERED: VANCOMYCIN PER PHARMACY 0 MG IV SCH (08:30)
[2022-07-17] MEDS: FLORASTOR (S. BOULARDII) 250 MG CAP PO SCH (10:00)
[2022-07-17] MEDS: CHOLECALCIFEROL (VITD3) 2,000 UNIT CAP/TAB PO SCH (10:00)
[2022-07-17] MEDS: ZINC SULFATE 220mg CAP or TAB PO SCH (10:00)
[2022-07-17] MEDS: ASPirin 81 mg TAB PO SCH (10:00)
[2022-07-17] MEDS: CLOPIDOGREL BISULFATE 75 MG TAB PO SCH (10:00)
[2022-07-17] MEDS: MULTIPLE VITAMIN TAB PO SCH (10:00)
[2022-07-17] MEDS: ASCORBIC ACID 500 MG TAB PO SCH ×2 (10:00→22:00)
[2022-07-17] MEDS: GABAPENTIN 100 MG CAP PO SCH (10:00)
[2022-07-17] MEDS: MICAFUNGIN SODIUM 100 MG in SODIUM CHL 0.9% 100 ML IV SCH (10:01)
[2022-07-17] MEDS: SODIUM CHLOR 0.9% PF (SALINE LOCK) 10ML VIAL/SYR IV SCH ×2 (10:01→22:00)
[2022-07-17] MEDS: VANCOMYCIN 750mg/250ml 250 ML IV SCH (10:03)
[2022-07-17] MEDS: FUROSEMIDE 20 MG/2 ML VIAL IV SCH (11:30)
[2022-07-17] MEDS: DexAMETHasone SOD PHOS 10MG/1ML VIAL INJ IV SCH (11:30)
[2022-07-17] MEDS: PANTOPRAZOLE 40 MG/10 ML VIAL INJ IV SCH (11:30)
[2022-07-17] MEDS: CEFEPIME 1GM/ 50ML 50 ML IV SCH ×2 (12:19→22:00)
[2022-07-17] MEDS: ACYCLOVIR SOD 50MG/ML 250 MG in D5W 5% 100 ML IV SCH ×2 (12:19→22:00)
[2022-07-17] MEDS: LABETALOL HCL 5 MG/ML 4ML SYRINGE IV PRN (17:42)
[2022-07-17] MEDS ORDERED: TPN PER PHARMACY IV NR ×9 (20:00)
[2022-07-18] VITALS (17 sets, daily range): BP systolic 138–175; BP diastolic 74–87
[2022-07-18] MEDS: LABETALOL HCL 5 MG/ML 4ML SYRINGE IV PRN ×2 (00:06→10:17)
[2022-07-18] MEDS: ACCU-CHEK COMFORT CURVE STRIP VI SCH ×4 (01:58→18:18)
[2022-07-18] MEDS: InsuLIN REG 1unit/0.01ml Soln (100units/ml) SC SCH ×4 (02:00→18:53)
[2022-07-18] MEDS: VANCOMYCIN 750mg/250ml 250 ML IV SCH ×2 (05:00→23:00)
[2022-07-18 06:43] LABS: Basophils # (auto) 0 10 ^3/uL (0-0.2); Basophils % (auto) 0.2 % (0.0-2.0); Eosinophils # (auto) 0 10 ^3/uL (0-0.8); Hematocrit 29.9 % (36.0-46.0); Hemoglobin 10.1 g/dL (12.2-16.2); Lymphocytes # (auto) 0.3 10 ^3/uL (0.4-5.4); Lymphocytes % (auto) 2.4 % (10.0-50.0); Mean Corpuscular Hemoglobin 28.6 pg (28.0-32.0); Mean Corpuscular Hgb Conc. 33.8 g/dL (32.0-36.0); Mean Corpuscular Volume 84.6 fL (80.0-100.0); Monocytes # (auto) 1.5 10 ^3/uL (0-1.3); Neutrophils % (auto) 85.4 % (37.0-80.0); Red Blood Cells 3.54 10^6/uL (4.0-5.20); Red Cell Distribution Width 18.3 % (11.8-14.3); White Blood Cell 12.9 10^3/uL (4.4-10.8)
[2022-07-18 06:54] LABS: Albumin 2.2 g/dL (3.4-5.0); Calcium 8.6 mg/dL (8.5-10.1); Magnesium 2.5 mg/dL (1.6-2.6); Potassium 3.6 mmol/L (3.5-5.1)
[2022-07-18 07:11] LABS: BUN/Creatinine Ratio 181.1 (10.0-20.0); Bilirubin, Total 1.1 mg/dL (0.2-1.0); Phosphorus 2.9 mg/dL (2.5-4.90); Total Protein 5.6 g/dL (6.4-8.2)
[2022-07-18] MEDS: ASPirin 81 mg TAB PO SCH (10:00)
[2022-07-18] MEDS: PANTOPRAZOLE 40 MG/10 ML VIAL INJ IV SCH (10:17)
[2022-07-18] MEDS: FUROSEMIDE 20 MG/2 ML VIAL IV SCH (10:17)
[2022-07-18] MEDS: DexAMETHasone SOD PHOS 10MG/1ML VIAL INJ IV SCH (10:17)
[2022-07-18] MEDS: MICAFUNGIN SODIUM 100 MG in SODIUM CHL 0.9% 100 ML IV SCH (10:19)
[2022-07-18] MEDS: CEFEPIME 1GM/ 50ML 50 ML IV SCH ×2 (10:20→22:00)
[2022-07-18] MEDS: SODIUM CHLOR 0.9% PF (SALINE LOCK) 10ML VIAL/SYR IV SCH ×2 (10:57→22:00)
[2022-07-18] MEDS: ZINC SULFATE 220mg CAP or TAB PO SCH (10:58)
[2022-07-18] MEDS: CLOPIDOGREL BISULFATE 75 MG TAB PO SCH (10:58)
[2022-07-18] MEDS: FLORASTOR (S. BOULARDII) 250 MG CAP PO SCH (10:58)
[2022-07-18] MEDS: GABAPENTIN 100 MG CAP PO SCH (10:58)
[2022-07-18] MEDS: MULTIPLE VITAMIN TAB PO SCH (10:58)
[2022-07-18] MEDS: CHOLECALCIFEROL (VITD3) 2,000 UNIT CAP/TAB PO SCH (10:59)
[2022-07-18] MEDS: ASCORBIC ACID 500 MG TAB PO SCH ×2 (10:59→22:00)
[2022-07-18] MEDS: METOPROLOL TARTRATE 50 MG TAB PO SCH ×2 (14:22→22:00)
[2022-07-18] MEDS: ACYCLOVIR SOD 50MG/ML 250 MG in D5W 5% 100 ML IV SCH ×2 (14:24→22:00)
[2022-07-18] MEDS: Ensure Pudding Vanilla 4 oz Cup PO SCH (18:53)
[2022-07-18] MEDS: MORPHINE SULFATE INJ 2 MG/ml SYRG IV PRN (20:51)
[2022-07-18] MEDS: TPN PER PHARMACY IV NR ×8 (21:00)
[2022-07-19] VITALS (17 sets, daily range): BP systolic 139–174; BP diastolic 70–96
[2022-07-19] MEDS: LABETALOL HCL 5 MG/ML 4ML SYRINGE IV PRN ×2 (02:52→09:24)
[2022-07-19] MEDS: InsuLIN REG 1unit/0.01ml Soln (100units/ml) SC SCH ×4 (06:00→16:48)
[2022-07-19] MEDS: ACCU-CHEK COMFORT CURVE STRIP VI SCH ×4 (06:00→16:48)
[2022-07-19 06:16] LABS: Basophils # (auto) 0 10 ^3/uL (0-0.2); Basophils % (auto) 0.2 % (0.0-2.0); Eosinophils # (auto) 0 10 ^3/uL (0-0.8); Eosinophils % (auto) 0.1 % (0.0-7.0); Hematocrit 29.5 % (36.0-46.0); Hemoglobin 9.7 g/dL (12.2-16.2); Lymphocytes # (auto) 0.3 10 ^3/uL (0.4-5.4); Lymphocytes % (auto) 2.6 % (10.0-50.0); Mean Corpuscular Hemoglobin 28.3 pg (28.0-32.0); Mean Corpuscular Hgb Conc. 32.9 g/dL (32.0-36.0); Monocytes # (auto) 1.8 10 ^3/uL (0-1.3); Monocytes % (auto) 13.6 % (0.0-12.0); Neutrophils # (auto) 10.9 10 ^3/uL (1.6-8.6); Neutrophils % (auto) 83.5 % (37.0-80.0); Red Blood Cells 3.43 10^6/uL (4.0-5.20); Red Cell Distribution Width 18.5 % (11.8-14.3)
[2022-07-19 06:31] LABS: Potassium 3.8 mmol/L (3.5-5.1)
[2022-07-19 06:51] LABS: Albumin 2.1 g/dL (3.4-5.0); BUN/Creatinine Ratio 174.3 (10.0-20.0); Bilirubin, Total 0.9 mg/dL (0.2-1.0); Calcium 8.4 mg/dL (8.5-10.1); Magnesium 2.2 mg/dL (1.6-2.6); Phosphorus 3.1 mg/dL (2.5-4.90); Total Protein 5.4 g/dL (6.4-8.2)
[2022-07-19] MEDS: MICAFUNGIN SODIUM 100 MG in SODIUM CHL 0.9% 100 ML IV SCH (07:38)
[2022-07-19] MEDS: DexAMETHasone SOD PHOS 4 MG/1ML SDV INJ IV SCH (07:38)
[2022-07-19] MEDS: PANTOPRAZOLE 40 MG/10 ML VIAL INJ IV SCH (07:39)
[2022-07-19] MEDS: SODIUM CHLOR 0.9% PF (SALINE LOCK) 10ML VIAL/SYR IV SCH ×2 (07:39→22:03)
[2022-07-19] MEDS: FUROSEMIDE 20 MG/2 ML VIAL IV SCH (07:39)
[2022-07-19] MEDS: MULTIPLE VITAMIN TAB PO SCH (07:40)
[2022-07-19] MEDS: FLORASTOR (S. BOULARDII) 250 MG CAP PO SCH (07:40)
[2022-07-19] MEDS: CHOLECALCIFEROL (VITD3) 2,000 UNIT CAP/TAB PO SCH (07:40)
[2022-07-19] MEDS: ASPirin 81 mg TAB PO SCH (07:40)
[2022-07-19] MEDS: ZINC SULFATE 220mg CAP or TAB PO SCH (07:40)
[2022-07-19] MEDS: ASCORBIC ACID 500 MG TAB PO SCH ×2 (07:40→22:00)
[2022-07-19] MEDS: GABAPENTIN 100 MG CAP PO SCH (07:40)
[2022-07-19] MEDS: ACYCLOVIR SOD 50MG/ML 250 MG in D5W 5% 100 ML IV SCH ×2 (07:41→22:03)
[2022-07-19] MEDS: CEFEPIME 1GM/ 50ML 50 ML IV SCH ×2 (07:41→22:02)
[2022-07-19] MEDS: METOPROLOL TARTRATE 50 MG TAB PO SCH ×3 (07:52→22:00)
[2022-07-19] MEDS: amLODIPine BESYLATE 5 MG TAB PO SCH (07:52)
[2022-07-19] MEDS: CLOPIDOGREL BISULFATE 75 MG TAB PO SCH (07:53)
[2022-07-19] MEDS: Ensure Pudding Vanilla 4 oz Cup PO SCH ×3 (08:00→12:48)
[2022-07-19] MEDS: hydrALAZINE HCL 20 MG/ML VL IV PRN (12:49)
[2022-07-19] MEDS: MORPHINE SULFATE INJ 2 MG/ml SYRG IV PRN (13:21)
[2022-07-19] MEDS: VANCOMYCIN 750mg/250ml 250 ML IV SCH (17:18)
[2022-07-19] MEDS: TPN PER PHARMACY IV NR ×8 (19:55)
[2022-07-19] MEDS ORDERED: TPN PER PHARMACY IV NR ×9 (20:00)
[2022-07-19] MEDS ORDERED: MELATONIN 5 MG TAB PO ONE (22:00)
[2022-07-20] VITALS (22 sets, daily range): BP systolic 125–182; BP diastolic 72–116
[2022-07-20] MEDS: InsuLIN REG 1unit/0.01ml Soln (100units/ml) SC SCH ×4 (06:00→17:12)
[2022-07-20] MEDS: ACCU-CHEK COMFORT CURVE STRIP VI SCH ×4 (06:00→17:12)
[2022-07-20 07:28] LABS: Albumin 2.1 g/dL (3.4-5.0); Calcium 8.9 mg/dL (8.5-10.1)
[2022-07-20 07:44] LABS: BUN/Creatinine Ratio 179.4 (10.0-20.0); Bilirubin, Total 0.9 mg/dL (0.2-1.0); Total Protein 5.5 g/dL (6.4-8.2)
[2022-07-20] MEDS: Ensure Pudding Vanilla 4 oz Cup PO SCH ×3 (08:00→17:12)
[2022-07-20] MEDS: MICAFUNGIN SODIUM 100 MG in SODIUM CHL 0.9% 100 ML IV SCH (09:36)
[2022-07-20] MEDS: METOPROLOL TARTRATE 50 MG TAB PO SCH ×2 (09:50→21:47)
[2022-07-20] MEDS: DexAMETHasone SOD PHOS 4 MG/1ML SDV INJ IV SCH (09:50)
[2022-07-20] MEDS: FUROSEMIDE 20 MG/2 ML VIAL IV SCH (09:50)
[2022-07-20] MEDS: ASCORBIC ACID 500 MG TAB PO SCH ×2 (10:00→21:47)
[2022-07-20] MEDS: ASPirin 81 mg TAB PO SCH (10:00)
[2022-07-20] MEDS: CLOPIDOGREL BISULFATE 75 MG TAB PO SCH (10:00)
[2022-07-20] MEDS: MULTIPLE VITAMIN TAB PO SCH (10:00)
[2022-07-20] MEDS: GABAPENTIN 100 MG CAP PO SCH (10:00)
[2022-07-20] MEDS: ZINC SULFATE 220mg CAP or TAB PO SCH (10:00)
[2022-07-20] MEDS: CHOLECALCIFEROL (VITD3) 2,000 UNIT CAP/TAB PO SCH (10:00)
[2022-07-20] MEDS: amLODIPine BESYLATE 5 MG TAB PO SCH (10:00)
[2022-07-20] MEDS: FLORASTOR (S. BOULARDII) 250 MG CAP PO SCH (10:00)
[2022-07-20] MEDS: PANTOPRAZOLE 40 MG/10 ML VIAL INJ IV SCH (10:06)
[2022-07-20] MEDS: SODIUM CHLOR 0.9% PF (SALINE LOCK) 10ML VIAL/SYR IV SCH ×2 (10:06→21:47)
[2022-07-20] MEDS: ACYCLOVIR SOD 50MG/ML 250 MG in D5W 5% 100 ML IV SCH ×2 (10:10→21:46)
[2022-07-20] MEDS: NYSTATIN (MOUTH-THROAT) 500,000 UNITS/5 ML SUSP MT SCH ×3 (13:43→21:46)
[2022-07-20] MEDS ORDERED: TPN PER PHARMACY IV NR ×11 (20:00)
[2022-07-20] MEDS ORDERED: MELATONIN 5 MG TAB PO ONE (22:00)
[2022-07-21] VITALS (19 sets, daily range): BP systolic 121–165; BP diastolic 65–86
[2022-07-21] MEDS: ACCU-CHEK COMFORT CURVE STRIP VI SCH ×5 (00:03→23:46)
[2022-07-21] MEDS: InsuLIN REG 1unit/0.01ml Soln (100units/ml) SC SCH ×5 (00:08→23:47)
[2022-07-21 06:32] LABS: Albumin 2.1 g/dL (3.4-5.0); Calcium 8.7 mg/dL (8.5-10.1)
[2022-07-21 06:40] LABS: BUN/Creatinine Ratio 220.7 (10.0-20.0); Bilirubin, Total 0.8 mg/dL (0.2-1.0); Phosphorus 3.5 mg/dL (2.5-4.90); Total Protein 5.5 g/dL (6.4-8.2)
[2022-07-21] MEDS: NYSTATIN (MOUTH-THROAT) 500,000 UNITS/5 ML SUSP MT SCH ×4 (06:48→21:07)
[2022-07-21] MEDS: Ensure Pudding Vanilla 4 oz Cup PO SCH ×3 (07:53→17:43)
[2022-07-21] MEDS: ACYCLOVIR SOD 50MG/ML 250 MG in D5W 5% 100 ML IV SCH ×2 (09:10→21:09)
[2022-07-21] MEDS: PANTOPRAZOLE 40 MG/10 ML VIAL INJ IV SCH (09:10)
[2022-07-21] MEDS: ASPirin 81 mg TAB PO SCH (09:10)
[2022-07-21] MEDS: FUROSEMIDE 20 MG/2 ML VIAL IV SCH (09:10)
[2022-07-21] MEDS: SODIUM CHLOR 0.9% PF (SALINE LOCK) 10ML VIAL/SYR IV SCH ×2 (09:10→21:07)
[2022-07-21] MEDS: MULTIPLE VITAMIN TAB PO SCH (09:11)
[2022-07-21] MEDS: GABAPENTIN 100 MG CAP PO SCH (09:11)
[2022-07-21] MEDS: FLORASTOR (S. BOULARDII) 250 MG CAP PO SCH (09:11)
[2022-07-21] MEDS: METOPROLOL TARTRATE 50 MG TAB PO SCH ×2 (09:11→21:09)
[2022-07-21] MEDS: ZINC SULFATE 220mg CAP or TAB PO SCH (09:11)
[2022-07-21] MEDS: CHOLECALCIFEROL (VITD3) 2,000 UNIT CAP/TAB PO SCH (09:12)
[2022-07-21] MEDS: ASCORBIC ACID 500 MG TAB PO SCH ×2 (09:12→21:09)
[2022-07-21] MEDS: amLODIPine BESYLATE 5 MG TAB PO SCH (09:12)
[2022-07-21] MEDS: CLOPIDOGREL BISULFATE 75 MG TAB PO SCH (09:12)
[2022-07-21] MEDS: DexAMETHasone SOD PHOS 4 MG/1ML SDV INJ IV SCH (09:20)
[2022-07-21] MEDS ORDERED: TPN PER PHARMACY IV NR ×11 (20:00)
[2022-07-22] VITALS (21 sets, daily range): BP systolic 117–165; BP diastolic 62–102
[2022-07-22] MEDS: hydrALAZINE HCL 20 MG/ML VL IV PRN (01:22)
[2022-07-22 05:48] LABS: Albumin 2.1 g/dL (3.4-5.0); Calcium 8.7 mg/dL (8.5-10.1); Magnesium 2.2 mg/dL (1.6-2.6); Potassium 4.1 mmol/L (3.5-5.1)
[2022-07-22 06:04] LABS: BUN/Creatinine Ratio 196.8 (10.0-20.0); Bilirubin, Total 0.8 mg/dL (0.2-1.0); Phosphorus 2.9 mg/dL (2.5-4.90); Total Protein 5.4 g/dL (6.4-8.2)
[2022-07-22] MEDS: NYSTATIN (MOUTH-THROAT) 500,000 UNITS/5 ML SUSP MT SCH ×4 (06:17→22:06)
[2022-07-22] MEDS: ACCU-CHEK COMFORT CURVE STRIP VI SCH ×4 (06:17→23:56)
[2022-07-22] MEDS: InsuLIN REG 1unit/0.01ml Soln (100units/ml) SC SCH ×3 (06:48→17:53)
[2022-07-22] MEDS: Ensure Pudding Vanilla 4 oz Cup PO SCH ×3 (08:00→18:00)
[2022-07-22] MEDS: PANTOPRAZOLE 40 MG/10 ML VIAL INJ IV SCH (09:33)
[2022-07-22] MEDS: FUROSEMIDE 20 MG/2 ML VIAL IV SCH (09:33)
[2022-07-22] MEDS: SODIUM CHLOR 0.9% PF (SALINE LOCK) 10ML VIAL/SYR IV SCH ×2 (09:33→22:10)
[2022-07-22] MEDS: GABAPENTIN 100 MG CAP PO SCH (09:34)
[2022-07-22] MEDS: ASPirin 81 mg TAB PO SCH (09:34)
[2022-07-22] MEDS: FLORASTOR (S. BOULARDII) 250 MG CAP PO SCH (09:34)
[2022-07-22] MEDS: ASCORBIC ACID 500 MG TAB PO SCH ×2 (09:34→22:09)
[2022-07-22] MEDS: METOPROLOL TARTRATE 50 MG TAB PO SCH ×2 (09:35→22:09)
[2022-07-22] MEDS: CHOLECALCIFEROL (VITD3) 2,000 UNIT CAP/TAB PO SCH (09:35)
[2022-07-22] MEDS: MULTIPLE VITAMIN TAB PO SCH (09:35)
[2022-07-22] MEDS: CLOPIDOGREL BISULFATE 75 MG TAB PO SCH (09:35)
[2022-07-22] MEDS: ZINC SULFATE 220mg CAP or TAB PO SCH (09:35)
[2022-07-22] MEDS: amLODIPine BESYLATE 5 MG TAB PO SCH (09:36)
[2022-07-22] MEDS: ACYCLOVIR SOD 50MG/ML 250 MG in D5W 5% 100 ML IV SCH ×2 (09:50→22:10)
[2022-07-22] MEDS: HYDROcodone-ACET 5/325MG TAB PO PRN (10:54)
[2022-07-22] MEDS: TPN PER PHARMACY IV NR ×11 (21:41)
[2022-07-22] MEDS: ACETAMINOPHEN 325 MG TAB PO PRN (22:07)
[2022-07-23] VITALS (17 sets, daily range): BP systolic 94–151; BP diastolic 50–82
[2022-07-23] MEDS: InsuLIN REG 1unit/0.01ml Soln (100units/ml) SC SCH ×4 (00:01→17:40)
[2022-07-23] MEDS: NYSTATIN (MOUTH-THROAT) 500,000 UNITS/5 ML SUSP MT SCH ×4 (05:40→21:45)
[2022-07-23] MEDS: ACCU-CHEK COMFORT CURVE STRIP VI SCH ×3 (05:41→17:40)
[2022-07-23] MEDS: hydrALAZINE HCL 20 MG/ML VL IV PRN (05:46)
[2022-07-23 07:46] LABS: Alanine Aminotransferase 166 U/L (13-56); Albumin 2.3 g/dL (3.4-5.0); Anion Gap 9 (5-15); Aspartate Aminotransferase 61 U/L (15-37); BUN/Creatinine Ratio 167.5 (10.0-20.0); Blood Urea Nitrogen 67 mg/dL (7-18); Calcium 8.7 mg/dL (8.5-10.1); Carbon Dioxide 20 mmol/L (21-32); Chloride 111 mmol/L (98-107); GFR African American 204 mL/min; GFR Non-African American 168 mL/min; Glucose 116 mg/dL (74-106); Potassium 3.9 mmol/L (3.5-5.1); Sodium 140 mmol/L (136-145)
[2022-07-23 07:49] LABS: Bilirubin, Total 0.7 mg/dL (0.2-1.0); Phosphorus 4.2 mg/dL (2.5-4.90)
[2022-07-23 09:08] LABS: Alkaline Phosphatase 1732 U/L (45-117)
[2022-07-23] MEDS: PANTOPRAZOLE 40 MG/10 ML VIAL INJ IV SCH (09:37)
[2022-07-23] MEDS: FUROSEMIDE 20 MG/2 ML VIAL IV SCH (09:38)
[2022-07-23] MEDS: amLODIPine BESYLATE 5 MG TAB PO SCH (09:38)
[2022-07-23] MEDS: CHOLECALCIFEROL (VITD3) 2,000 UNIT CAP/TAB PO SCH (09:38)
[2022-07-23] MEDS: ZINC SULFATE 220mg CAP or TAB PO SCH (09:39)
[2022-07-23] MEDS: CLOPIDOGREL BISULFATE 75 MG TAB PO SCH (09:39)
[2022-07-23] MEDS: MULTIPLE VITAMIN TAB PO SCH (09:39)
[2022-07-23] MEDS: FLORASTOR (S. BOULARDII) 250 MG CAP PO SCH (09:39)
[2022-07-23] MEDS: METOPROLOL TARTRATE 50 MG TAB PO SCH ×2 (09:39→21:45)
[2022-07-23] MEDS: ASCORBIC ACID 500 MG TAB PO SCH ×2 (09:40→21:45)
[2022-07-23] MEDS: GABAPENTIN 100 MG CAP PO SCH (09:40)
[2022-07-23] MEDS: Ensure Pudding Vanilla 4 oz Cup PO SCH ×3 (09:40→17:40)
[2022-07-23] MEDS: ASPirin 81 mg TAB PO SCH (09:40)
[2022-07-23] MEDS: ACYCLOVIR SOD 50MG/ML 250 MG in D5W 5% 100 ML IV SCH ×2 (09:49→21:45)
[2022-07-23] MEDS: SODIUM CHLOR 0.9% PF (SALINE LOCK) 10ML VIAL/SYR IV SCH ×2 (10:24→21:44)
[2022-07-23] MEDS: ACETAMINOPHEN 325 MG TAB PO PRN (14:03)
[2022-07-23] MEDS: ALPRAZolam 0.25 MG TAB PO PRN (17:25)
[2022-07-23] MEDS: TPN PER PHARMACY IV NR ×11 (19:49)
[2022-07-23] MEDS ORDERED: TPN PER PHARMACY IV NR ×11 (20:00)
[2022-07-23] MEDS ORDERED: MELATONIN 5 MG TAB PO ONE (22:00)
[2022-07-24] VITALS (22 sets, daily range): BP systolic 101–143; BP diastolic 51–74
[2022-07-24] MEDS: ACCU-CHEK COMFORT CURVE STRIP VI SCH ×4 (00:01→16:36)
[2022-07-24] MEDS: InsuLIN REG 1unit/0.01ml Soln (100units/ml) SC SCH ×4 (00:02→16:52)
[2022-07-24] MEDS: ALPRAZolam 0.25 MG TAB PO PRN (05:00)
[2022-07-24 05:12] LABS: Basophils # (auto) 0.2 10 ^3/uL (0-0.2); Eosinophils # (auto) 0.2 10 ^3/uL (0-0.8); Eosinophils % (auto) 0.8 % (0.0-7.0); Hematocrit 32.4 % (36.0-46.0); Hemoglobin 10.7 g/dL (12.2-16.2); Lymphocytes # (auto) 0.7 10 ^3/uL (0.4-5.4); Lymphocytes % (auto) 3.2 % (10.0-50.0); Mean Corpuscular Hemoglobin 28.9 pg (28.0-32.0); Mean Corpuscular Volume 87.7 fL (80.0-100.0); Monocytes # (auto) 2.3 10 ^3/uL (0-1.3); Monocytes % (auto) 10.4 % (0.0-12.0); Neutrophils # (auto) 18.4 10 ^3/uL (1.6-8.6); Neutrophils % (auto) 84.6 % (37.0-80.0); Nucleated Red Blood Cells % 0.3 %; Red Cell Distribution Width 18.9 % (11.8-14.3); White Blood Cell 21.8 10^3/uL (4.4-10.8)
[2022-07-24 05:28] LABS: Albumin 2.1 g/dL (3.4-5.0); Calcium 8.7 mg/dL (8.5-10.1); Magnesium 2.1 mg/dL (1.6-2.6); Potassium 3.7 mmol/L (3.5-5.1)
[2022-07-24 05:44] LABS: BUN/Creatinine Ratio 211.1 (10.0-20.0); Bilirubin, Total 0.7 mg/dL (0.2-1.0); Phosphorus 3.8 mg/dL (2.5-4.90); Total Protein 5.5 g/dL (6.4-8.2)
[2022-07-24] MEDS: NYSTATIN (MOUTH-THROAT) 500,000 UNITS/5 ML SUSP MT SCH ×4 (05:55→22:00)
[2022-07-24] MEDS: SODIUM CHLOR 0.9% PF (SALINE LOCK) 10ML VIAL/SYR IV SCH ×2 (07:38→22:00)
[2022-07-24] MEDS: Ensure Pudding Vanilla 4 oz Cup PO SCH ×3 (08:00→16:34)
[2022-07-24] MEDS: FUROSEMIDE 20 MG/2 ML VIAL IV SCH (08:36)
[2022-07-24] MEDS: PANTOPRAZOLE 40 MG/10 ML VIAL INJ IV SCH (08:36)
[2022-07-24] MEDS: ACYCLOVIR SOD 50MG/ML 250 MG in D5W 5% 100 ML IV SCH ×2 (08:37→23:31)
[2022-07-24] MEDS: ZINC SULFATE 220mg CAP or TAB PO SCH (08:46)
[2022-07-24] MEDS: GABAPENTIN 100 MG CAP PO SCH (08:46)
[2022-07-24] MEDS: CHOLECALCIFEROL (VITD3) 2,000 UNIT CAP/TAB PO SCH (08:47)
[2022-07-24] MEDS: MULTIPLE VITAMIN TAB PO SCH (08:47)
[2022-07-24] MEDS: ASPirin 81 mg TAB PO SCH (08:47)
[2022-07-24] MEDS: FLORASTOR (S. BOULARDII) 250 MG CAP PO SCH (08:47)
[2022-07-24] MEDS: amLODIPine BESYLATE 5 MG TAB PO SCH (08:48)
[2022-07-24] MEDS: ASCORBIC ACID 500 MG TAB PO SCH ×2 (08:49→22:00)
[2022-07-24] MEDS: METOPROLOL TARTRATE 50 MG TAB PO SCH ×2 (08:49→22:00)
[2022-07-24] MEDS: CLOPIDOGREL BISULFATE 75 MG TAB PO SCH (08:49)
[2022-07-24] MEDS: ONDANSETRON HCL 4 MG/2 ML VIAL IV PRN (09:53)
[2022-07-24] MEDS: ACETAMINOPHEN 325 MG TAB PO PRN (17:38)
[2022-07-24] MEDS ORDERED: TPN PER PHARMACY IV NR ×10 (20:00)
[2022-07-25] VITALS (22 sets, daily range): BP systolic 109–144; BP diastolic 57–78
[2022-07-25] MEDS: ACCU-CHEK COMFORT CURVE STRIP VI SCH ×4 (05:54→16:23)
[2022-07-25] MEDS: InsuLIN REG 1unit/0.01ml Soln (100units/ml) SC SCH ×4 (05:54→16:23)
[2022-07-25] MEDS: NYSTATIN (MOUTH-THROAT) 500,000 UNITS/5 ML SUSP MT SCH ×4 (06:00→21:24)
[2022-07-25 06:11] LABS: Basophils # (auto) 0.1 10 ^3/uL (0-0.2); Basophils % (auto) 0.6 % (0.0-2.0); Eosinophils # (auto) 0.2 10 ^3/uL (0-0.8); Hematocrit 29.1 % (36.0-46.0); Hemoglobin 9.6 g/dL (12.2-16.2); Lymphocytes # (auto) 0.8 10 ^3/uL (0.4-5.4); Mean Corpuscular Volume 87.8 fL (80.0-100.0); Monocytes # (auto) 2.2 10 ^3/uL (0-1.3); Neutrophils # (auto) 13.5 10 ^3/uL (1.6-8.6); Neutrophils % (auto) 80.4 % (37.0-80.0); Nucleated Red Blood Cells % 0.1 %; Red Blood Cells 3.31 10^6/uL (4.0-5.20); White Blood Cell 16.8 10^3/uL (4.4-10.8)
[2022-07-25 06:26] LABS: Red Cell Distribution Width 20.2 % (11.8-14.3)
[2022-07-25 06:59] LABS: Albumin 1.9 g/dL (3.4-5.0); BUN/Creatinine Ratio 186.1 (10.0-20.0); Bilirubin, Total 0.6 mg/dL (0.2-1.0); Calcium 8.2 mg/dL (8.5-10.1); Magnesium 2.4 mg/dL (1.6-2.6); Total Protein 4.5 g/dL (6.4-8.2)
[2022-07-25] MEDS: Ensure Pudding Vanilla 4 oz Cup PO SCH ×3 (07:40→11:49)
[2022-07-25] MEDS: FUROSEMIDE 20 MG/2 ML VIAL IV SCH (08:39)
[2022-07-25] MEDS: PANTOPRAZOLE 40 MG/10 ML VIAL INJ IV SCH (08:39)
[2022-07-25] MEDS: GABAPENTIN 100 MG CAP PO SCH (08:40)
[2022-07-25] MEDS: ZINC SULFATE 220mg CAP or TAB PO SCH (08:40)
[2022-07-25] MEDS: CLOPIDOGREL BISULFATE 75 MG TAB PO SCH (08:40)
[2022-07-25] MEDS: METOPROLOL TARTRATE 50 MG TAB PO SCH ×2 (08:40→21:23)
[2022-07-25] MEDS: amLODIPine BESYLATE 5 MG TAB PO SCH (08:40)
[2022-07-25] MEDS: ASCORBIC ACID 500 MG TAB PO SCH ×2 (08:40→21:23)
[2022-07-25] MEDS: SODIUM CHLOR 0.9% PF (SALINE LOCK) 10ML VIAL/SYR IV SCH ×2 (08:41→21:24)
[2022-07-25] MEDS: FLORASTOR (S. BOULARDII) 250 MG CAP PO SCH (08:41)
[2022-07-25] MEDS: MULTIPLE VITAMIN TAB PO SCH (08:41)
[2022-07-25] MEDS: CHOLECALCIFEROL (VITD3) 2,000 UNIT CAP/TAB PO SCH (08:41)
[2022-07-25] MEDS: ASPirin 81 mg TAB PO SCH (08:41)
[2022-07-25] MEDS: ALPRAZolam 0.25 MG TAB PO PRN (08:42)
[2022-07-25] MEDS: ACYCLOVIR SOD 50MG/ML 250 MG in D5W 5% 100 ML IV SCH ×2 (08:43→23:00)
[2022-07-25] MEDS: ACETAMINOPHEN 325 MG TAB PO PRN ×2 (13:05→21:23)
[2022-07-25] MEDS: TPN PER PHARMACY IV NR ×9 (21:47)
[2022-07-26] VITALS (17 sets, daily range): BP systolic 97–147; BP diastolic 46–71
[2022-07-26] MEDS: ACCU-CHEK COMFORT CURVE STRIP VI SCH ×4 (06:00→16:36)
[2022-07-26] MEDS: InsuLIN REG 1unit/0.01ml Soln (100units/ml) SC SCH ×4 (06:00→16:39)
[2022-07-26] MEDS: NYSTATIN (MOUTH-THROAT) 500,000 UNITS/5 ML SUSP MT SCH ×4 (06:00→22:00)
[2022-07-26 06:31] LABS: Basophils # (auto) 0.1 10 ^3/uL (0-0.2); Hemoglobin 7.6 g/dL (12.2-16.2); Mean Corpuscular Hemoglobin 29.1 pg (28.0-32.0); Monocytes # (auto) 1.7 10 ^3/uL (0-1.3); Neutrophils # (auto) 10.5 10 ^3/uL (1.6-8.6)
[2022-07-26 06:33] LABS: Basophils % (auto) 0.5 % (0.0-2.0); Eosinophils # (auto) 0.2 10 ^3/uL (0-0.8); Eosinophils % (auto) 1.2 % (0.0-7.0); Hematocrit 23.2 % (36.0-46.0); Lymphocytes # (auto) 0.6 10 ^3/uL (0.4-5.4); Lymphocytes % (auto) 4.8 % (10.0-50.0); Mean Corpuscular Hgb Conc. 32.6 g/dL (32.0-36.0); Mean Corpuscular Volume 89.5 fL (80.0-100.0); Monocytes % (auto) 12.7 % (0.0-12.0); Neutrophils % (auto) 80.8 % (37.0-80.0); Nucleated Red Blood Cells % 0.1 %; Red Blood Cells 2.59 10^6/uL (4.0-5.20)
[2022-07-26 06:50] LABS: Albumin 1.6 g/dL (3.4-5.0); Calcium 7.7 mg/dL (8.5-10.1); Magnesium 2.2 mg/dL (1.6-2.6); Potassium 3.5 mmol/L (3.5-5.1)
[2022-07-26 06:57] LABS: Red Cell Distribution Width 20.2 % (11.8-14.3)
[2022-07-26 07:08] LABS: BUN/Creatinine Ratio 187.1 (10.0-20.0); Bilirubin, Total 0.6 mg/dL (0.2-1.0); Phosphorus 3.3 mg/dL (2.5-4.90); Total Protein 4.8 g/dL (6.4-8.2)
[2022-07-26] MEDS: Ensure Pudding Vanilla 4 oz Cup PO SCH ×3 (07:40→12:17)
[2022-07-26] MEDS: FUROSEMIDE 20 MG/2 ML VIAL IV SCH (08:15)
[2022-07-26] MEDS: ALPRAZolam 0.25 MG TAB PO PRN ×2 (08:16→19:58)
[2022-07-26] MEDS: MULTIPLE VITAMIN TAB PO SCH (08:16)
[2022-07-26] MEDS: GABAPENTIN 100 MG CAP PO SCH (08:16)
[2022-07-26] MEDS: FLORASTOR (S. BOULARDII) 250 MG CAP PO SCH (08:16)
[2022-07-26] MEDS: PANTOPRAZOLE 40 MG/10 ML VIAL INJ IV SCH (08:16)
[2022-07-26] MEDS: ASPirin 81 mg TAB PO SCH (08:16)
[2022-07-26] MEDS: ZINC SULFATE 220mg CAP or TAB PO SCH (08:17)
[2022-07-26] MEDS: CHOLECALCIFEROL (VITD3) 2,000 UNIT CAP/TAB PO SCH (08:17)
[2022-07-26] MEDS: ASCORBIC ACID 500 MG TAB PO SCH ×2 (08:17→22:00)
[2022-07-26] MEDS: METOPROLOL TARTRATE 50 MG TAB PO SCH ×2 (08:17→22:00)
[2022-07-26] MEDS: ACYCLOVIR SOD 50MG/ML 250 MG in D5W 5% 100 ML IV SCH ×2 (08:18→22:00)
[2022-07-26] MEDS: amLODIPine BESYLATE 5 MG TAB PO SCH (08:18)
[2022-07-26] MEDS: SODIUM CHLOR 0.9% PF (SALINE LOCK) 10ML VIAL/SYR IV SCH ×2 (08:19→22:00)
[2022-07-26] MEDS: CLOPIDOGREL BISULFATE 75 MG TAB PO SCH (08:19)
[2022-07-26] MEDS: ACETAMINOPHEN 325 MG TAB PO PRN ×2 (12:18→19:58)
[2022-07-26] MEDS: TPN PER PHARMACY IV NR ×19 (19:54→20:13)
[2022-07-26 21:09] LABS: Basophils # (auto) 0 10 ^3/uL (0-0.2); Basophils % (auto) 0.4 % (0.0-2.0); Eosinophils # (auto) 0.1 10 ^3/uL (0-0.8); Eosinophils % (auto) 0.9 % (0.0-7.0); Hematocrit 26.8 % (36.0-46.0); Hemoglobin 8.8 g/dL (12.2-16.2); Lymphocytes # (auto) 0.9 10 ^3/uL (0.4-5.4); Lymphocytes % (auto) 6.5 % (10.0-50.0); Mean Corpuscular Hemoglobin 29.2 pg (28.0-32.0); Mean Corpuscular Hgb Conc. 32.7 g/dL (32.0-36.0); Mean Corpuscular Volume 89.2 fL (80.0-100.0); Monocytes % (auto) 15.5 % (0.0-12.0); Neutrophils # (auto) 10.1 10 ^3/uL (1.6-8.6); Neutrophils % (auto) 76.7 % (37.0-80.0); Nucleated Red Blood Cells % 0.2 %; Red Blood Cells 3.01 10^6/uL (4.0-5.20); White Blood Cell 13.2 10^3/uL (4.4-10.8)
[2022-07-26 21:24] LABS: Red Cell Distribution Width 20.7 % (11.8-14.3)
[2022-07-27] VITALS (16 sets, daily range): BP systolic 111–155; BP diastolic 50–78
[2022-07-27] MEDS: NYSTATIN (MOUTH-THROAT) 500,000 UNITS/5 ML SUSP MT SCH ×4 (06:00→23:30)
[2022-07-27] MEDS: InsuLIN REG 1unit/0.01ml Soln (100units/ml) SC SCH ×4 (06:00→18:00)
[2022-07-27] MEDS: ACCU-CHEK COMFORT CURVE STRIP VI SCH ×5 (06:00→23:30)
[2022-07-27 07:34] LABS: Basophils # (auto) 0.1 10 ^3/uL (0-0.2); Basophils % (auto) 0.4 % (0.0-2.0); Eosinophils # (auto) 0.1 10 ^3/uL (0-0.8); Eosinophils % (auto) 0.7 % (0.0-7.0); Hematocrit 27.9 % (36.0-46.0); Hemoglobin 9.2 g/dL (12.2-16.2); Lymphocytes # (auto) 0.8 10 ^3/uL (0.4-5.4); Lymphocytes % (auto) 6.4 % (10.0-50.0); Mean Corpuscular Hemoglobin 29.4 pg (28.0-32.0); Mean Corpuscular Volume 89.1 fL (80.0-100.0); Monocytes % (auto) 15.8 % (0.0-12.0); Neutrophils % (auto) 76.7 % (37.0-80.0); Nucleated Red Blood Cells % 0.1 %; Red Blood Cells 3.14 10^6/uL (4.0-5.20)
[2022-07-27 07:52] LABS: Albumin 1.6 g/dL (3.4-5.0); Calcium 8.1 mg/dL (8.5-10.1); Magnesium 2.3 mg/dL (1.6-2.6)
[2022-07-27] MEDS: Ensure Pudding Vanilla 4 oz Cup PO SCH ×3 (08:00→18:00)
[2022-07-27 08:07] LABS: Bilirubin, Total 0.6 mg/dL (0.2-1.0); Phosphorus 4.2 mg/dL (2.5-4.90); Red Cell Distribution Width 21.5 % (11.8-14.3); Total Protein 5.3 g/dL (6.4-8.2)
[2022-07-27] MEDS: GABAPENTIN 100 MG CAP PO SCH (10:00)
[2022-07-27] MEDS: MULTIPLE VITAMIN TAB PO SCH (10:00)
[2022-07-27] MEDS: CHOLECALCIFEROL (VITD3) 2,000 UNIT CAP/TAB PO SCH (10:00)
[2022-07-27] MEDS: CLOPIDOGREL BISULFATE 75 MG TAB PO SCH (10:00)
[2022-07-27] MEDS: ZINC SULFATE 220mg CAP or TAB PO SCH (10:00)
[2022-07-27] MEDS: ASCORBIC ACID 500 MG TAB PO SCH ×2 (10:00→23:30)
[2022-07-27] MEDS: FLORASTOR (S. BOULARDII) 250 MG CAP PO SCH (10:00)
[2022-07-27] MEDS: ASPirin 81 mg TAB PO SCH (10:00)
[2022-07-27] MEDS: FUROSEMIDE 20 MG/2 ML VIAL IV SCH (10:10)
[2022-07-27] MEDS: ACYCLOVIR SOD 50MG/ML 250 MG in D5W 5% 100 ML IV SCH ×2 (10:10→23:30)
[2022-07-27] MEDS: PANTOPRAZOLE 40 MG/10 ML VIAL INJ IV SCH (10:10)
[2022-07-27] MEDS: SODIUM CHLOR 0.9% PF (SALINE LOCK) 10ML VIAL/SYR IV SCH ×2 (10:10→23:30)
[2022-07-27] MEDS: amLODIPine BESYLATE 5 MG TAB PO SCH (10:11)
[2022-07-27] MEDS: METOPROLOL TARTRATE 50 MG TAB PO SCH ×2 (10:11→23:30)
[2022-07-27] MEDS: LORazepam 2MG/ML-1ML VIAL IV PRN (10:14)
[2022-07-27] MEDS ORDERED: LACTULOSE 20Gm/30ML SOLN PO PRN (16:00)
[2022-07-27] MEDS: ACETAMINOPHEN 325 MG TAB PO PRN (17:29)
[2022-07-27] MEDS: TPN PER PHARMACY IV NR ×20 (19:56→21:33)
[2022-07-27 20:13] LABS: Urine Bacteria FEW /hpf (None Seen); Urine Blood TRACE /uL (Negative); Urine Budding Yeast FEW /hpf (None Seen); Urine Specific Gravity 1.016 (1.001-1.035); Urine WBC 15 /hpf (0 - 5)
[2022-07-27] MEDS: diphenhdrAMINE HCL 25 MG CAP PO PRN (23:50)
[2022-07-28] VITALS (23 sets, daily range): BP systolic 97–160; BP diastolic 45–83
[2022-07-28] MEDS: InsuLIN REG 1unit/0.01ml Soln (100units/ml) SC SCH ×5 (06:00→23:57)
[2022-07-28] MEDS: NYSTATIN (MOUTH-THROAT) 500,000 UNITS/5 ML SUSP MT SCH ×4 (06:25→21:55)
[2022-07-28] MEDS: ACCU-CHEK COMFORT CURVE STRIP VI SCH ×4 (06:25→23:55)
[2022-07-28 06:54] LABS: INR 1.01 (0.9-1.15)
[2022-07-28 07:01] LABS: Calcium 8.6 mg/dL (8.5-10.1); Potassium 3.9 mmol/L (3.5-5.1)
[2022-07-28 07:16] LABS: Basophils # (auto) 0 10 ^3/uL (0-0.2); Basophils % (auto) 0.5 % (0.0-2.0); Eosinophils # (auto) 0.1 10 ^3/uL (0-0.8); Eosinophils % (auto) 1.1 % (0.0-7.0); Hematocrit 27.8 % (36.0-46.0); Hemoglobin 9.3 g/dL (12.2-16.2); Lymphocytes # (auto) 0.8 10 ^3/uL (0.4-5.4); Lymphocytes % (auto) 7.5 % (10.0-50.0); Mean Corpuscular Hemoglobin 29.7 pg (28.0-32.0); Mean Corpuscular Hgb Conc. 33.3 g/dL (32.0-36.0); Mean Corpuscular Volume 89.3 fL (80.0-100.0); Monocytes # (auto) 1.8 10 ^3/uL (0-1.3); Monocytes % (auto) 16.5 % (0.0-12.0); Neutrophils % (auto) 74.4 % (37.0-80.0); Nucleated Red Blood Cells % 0.2 %; Red Blood Cells 3.12 10^6/uL (4.0-5.20); White Blood Cell 10.8 10^3/uL (4.4-10.8)
[2022-07-28 07:19] LABS: Albumin 1.6 g/dL (3.4-5.0); BUN/Creatinine Ratio 184.4 (10.0-20.0); Bilirubin, Total 0.6 mg/dL (0.2-1.0); Magnesium 2.1 mg/dL (1.6-2.6); Phosphorus 3.8 mg/dL (2.5-4.90); Total Protein 5.4 g/dL (6.4-8.2)
[2022-07-28 07:38] LABS: Red Cell Distribution Width 21.6 % (11.8-14.3)
[2022-07-28] MEDS: Ensure Pudding Vanilla 4 oz Cup PO SCH ×3 (08:00→18:00)
[2022-07-28] MEDS: SODIUM CHLOR 0.9% PF (SALINE LOCK) 10ML VIAL/SYR IV SCH ×2 (09:16→21:55)
[2022-07-28] MEDS: PANTOPRAZOLE 40 MG/10 ML VIAL INJ IV SCH (09:16)
[2022-07-28] MEDS: amLODIPine BESYLATE 5 MG TAB PO SCH (09:17)
[2022-07-28] MEDS: METOPROLOL TARTRATE 50 MG TAB PO SCH ×2 (09:18→21:55)
[2022-07-28] MEDS: FUROSEMIDE 20 MG TAB PO SCH (09:18)
[2022-07-28] MEDS: ACETAMINOPHEN 325 MG TAB PO PRN (09:28)
[2022-07-28] MEDS: GABAPENTIN 100 MG CAP PO SCH (10:00)
[2022-07-28] MEDS: MULTIPLE VITAMIN TAB PO SCH (10:00)
[2022-07-28] MEDS: CLOPIDOGREL BISULFATE 75 MG TAB PO SCH (10:00)
[2022-07-28] MEDS: FLORASTOR (S. BOULARDII) 250 MG CAP PO SCH (10:00)
[2022-07-28] MEDS ORDERED: MEGESTROL ACETATE 20 MG TAB PO SCH (10:00)
[2022-07-28] MEDS: ZINC SULFATE 220mg CAP or TAB PO SCH (10:00)
[2022-07-28] MEDS: CHOLECALCIFEROL (VITD3) 2,000 UNIT CAP/TAB PO SCH (10:00)
[2022-07-28] MEDS: ASPirin 81 mg TAB PO SCH (10:00)
[2022-07-28] MEDS: ASCORBIC ACID 500 MG TAB PO SCH ×2 (10:00→21:55)
[2022-07-28] MEDS ORDERED: LIDOCAINE VISCOUS 2% 15ML UD MT ONE (11:30)
[2022-07-28] MEDS: MEGESTROL ACET 400MG/10ML ORAL SUSP PO SCH ×2 (13:18→22:00)
[2022-07-28] MEDS: HYDROcodone-ACET 5/325MG TAB PO PRN ×2 (18:05→22:12)
[2022-07-28] MEDS: TPN PER PHARMACY IV NR ×10 (19:47)
[2022-07-28] MEDS ORDERED: TPN PER PHARMACY IV NR ×11 (20:00)
[2022-07-29] VITALS (24 sets, daily range): BP systolic 110–150; BP diastolic 48–73
[2022-07-29 05:20] LABS: Basophils # (auto) 0.1 10 ^3/uL (0-0.2); Basophils % (auto) 1.2 % (0.0-2.0); Eosinophils # (auto) 0.1 10 ^3/uL (0-0.8); Eosinophils % (auto) 1.5 % (0.0-7.0); Hematocrit 26.2 % (36.0-46.0); Hemoglobin 8.7 g/dL (12.2-16.2); Lymphocytes # (auto) 0.8 10 ^3/uL (0.4-5.4); Lymphocytes % (auto) 7.4 % (10.0-50.0); Mean Corpuscular Hemoglobin 29.9 pg (28.0-32.0); Mean Corpuscular Hgb Conc. 33.3 g/dL (32.0-36.0); Mean Corpuscular Volume 89.8 fL (80.0-100.0); Monocytes # (auto) 1.5 10 ^3/uL (0-1.3); Monocytes % (auto) 14.3 % (0.0-12.0); Neutrophils # (auto) 7.7 10 ^3/uL (1.6-8.6); Neutrophils % (auto) 75.6 % (37.0-80.0); Nucleated Red Blood Cells % 0.1 %; Red Blood Cells 2.91 10^6/uL (4.0-5.20); White Blood Cell 10.2 10^3/uL (4.4-10.8)
[2022-07-29 05:21] LABS: Red Cell Distribution Width 21.8 % (11.8-14.3)
[2022-07-29 05:37] LABS: Albumin 1.5 g/dL (3.4-5.0); Calcium 8.3 mg/dL (8.5-10.1); Magnesium 2.1 mg/dL (1.6-2.6); Potassium 4.2 mmol/L (3.5-5.1)
[2022-07-29 05:53] LABS: Bilirubin, Total 0.5 mg/dL (0.2-1.0); Phosphorus 3.2 mg/dL (2.5-4.90); Total Protein 5.2 g/dL (6.4-8.2)
[2022-07-29] MEDS: InsuLIN REG 1unit/0.01ml Soln (100units/ml) SC SCH ×3 (06:00→18:00)
[2022-07-29] MEDS: NYSTATIN (MOUTH-THROAT) 500,000 UNITS/5 ML SUSP MT SCH ×4 (06:00→23:15)
[2022-07-29] MEDS: ACCU-CHEK COMFORT CURVE STRIP VI SCH ×3 (06:35→18:10)
[2022-07-29] MEDS: Ensure Pudding Vanilla 4 oz Cup PO SCH ×3 (08:00→18:00)
[2022-07-29] MEDS: MEGESTROL ACET 400MG/10ML ORAL SUSP PO SCH ×2 (10:00→22:00)
[2022-07-29] MEDS: PANTOPRAZOLE 40 MG/10 ML VIAL INJ IV SCH (10:18)
[2022-07-29] MEDS: ASPirin 81 mg TAB PO SCH (10:18)
[2022-07-29] MEDS: CLOPIDOGREL BISULFATE 75 MG TAB PO SCH (10:18)
[2022-07-29] MEDS: GABAPENTIN 100 MG CAP PO SCH (10:18)
[2022-07-29] MEDS: FLORASTOR (S. BOULARDII) 250 MG CAP PO SCH (10:18)
[2022-07-29] MEDS: SODIUM CHLOR 0.9% PF (SALINE LOCK) 10ML VIAL/SYR IV SCH ×2 (10:18→23:16)
[2022-07-29] MEDS: MULTIPLE VITAMIN TAB PO SCH (10:18)
[2022-07-29] MEDS: CHOLECALCIFEROL (VITD3) 2,000 UNIT CAP/TAB PO SCH (10:19)
[2022-07-29] MEDS: ASCORBIC ACID 500 MG TAB PO SCH ×2 (10:19→23:15)
[2022-07-29] MEDS: FUROSEMIDE 20 MG TAB PO SCH (10:19)
[2022-07-29] MEDS: METOPROLOL TARTRATE 50 MG TAB PO SCH ×2 (10:20→23:15)
[2022-07-29] MEDS: amLODIPine BESYLATE 5 MG TAB PO SCH (10:20)
[2022-07-29] MEDS: ACETAMINOPHEN 325 MG TAB PO PRN (10:20)
[2022-07-29] MEDS: ZINC SULFATE 220mg CAP or TAB PO SCH (10:20)
[2022-07-29] MEDS: TPN PER PHARMACY IV NR ×11 (20:34)
[2022-07-29] MEDS: HYDROcodone-ACET 5/325MG TAB PO PRN (20:58)
[2022-07-30] VITALS (23 sets, daily range): BP systolic 118–163; BP diastolic 58–77
[2022-07-30] MEDS: HYDROcodone-ACET 5/325MG TAB PO PRN (01:21)
[2022-07-30 05:17] LABS: Albumin 1.5 g/dL (3.4-5.0); Calcium 8.1 mg/dL (8.5-10.1); Potassium 4.1 mmol/L (3.5-5.1)
[2022-07-30 05:32] LABS: BUN/Creatinine Ratio 152.8 (10.0-20.0); Bilirubin, Total 0.4 mg/dL (0.2-1.0); Total Protein 5.2 g/dL (6.4-8.2)
[2022-07-30] MEDS: ACCU-CHEK COMFORT CURVE STRIP VI SCH ×5 (05:33→23:26)
[2022-07-30] MEDS: InsuLIN REG 1unit/0.01ml Soln (100units/ml) SC SCH ×5 (05:33→23:27)
[2022-07-30] MEDS: NYSTATIN (MOUTH-THROAT) 500,000 UNITS/5 ML SUSP MT SCH ×4 (06:00→22:00)
[2022-07-30] MEDS: Ensure Pudding Vanilla 4 oz Cup PO SCH ×3 (07:22→13:15)
[2022-07-30] MEDS: CHOLECALCIFEROL (VITD3) 2,000 UNIT CAP/TAB PO SCH (08:23)
[2022-07-30] MEDS: FUROSEMIDE 20 MG TAB PO SCH (08:24)
[2022-07-30] MEDS: GABAPENTIN 100 MG CAP PO SCH (08:24)
[2022-07-30] MEDS: FLORASTOR (S. BOULARDII) 250 MG CAP PO SCH (08:24)
[2022-07-30] MEDS: METOPROLOL TARTRATE 50 MG TAB PO SCH ×2 (08:25→22:15)
[2022-07-30] MEDS: amLODIPine BESYLATE 5 MG TAB PO SCH (08:25)
[2022-07-30] MEDS: CLOPIDOGREL BISULFATE 75 MG TAB PO SCH (08:25)
[2022-07-30] MEDS: ZINC SULFATE 220mg CAP or TAB PO SCH (08:26)
[2022-07-30] MEDS: SODIUM CHLOR 0.9% PF (SALINE LOCK) 10ML VIAL/SYR IV SCH ×2 (08:26→22:14)
[2022-07-30] MEDS: ASPirin 81 mg TAB PO SCH (08:26)
[2022-07-30] MEDS: MULTIPLE VITAMIN TAB PO SCH (08:26)
[2022-07-30] MEDS: ASCORBIC ACID 500 MG TAB PO SCH (08:26)
[2022-07-30] MEDS: PANTOPRAZOLE 40 MG/10 ML VIAL INJ IV SCH (08:26)
[2022-07-30] MEDS: MEGESTROL ACET 400MG/10ML ORAL SUSP PO SCH ×2 (08:59→22:00)
[2022-07-30] MEDS: LOPERAMIDE HCL 2 MG CAP/TAB PO PRN (11:07)
[2022-07-30] MEDS: ACETAMINOPHEN 325 MG TAB PO PRN (18:16)
[2022-07-30] MEDS: TPN PER PHARMACY IV NR ×22 (19:41→19:52)
[2022-07-31] VITALS (24 sets, daily range): BP systolic 125–164; BP diastolic 50–79
[2022-07-31 05:13] LABS: Potassium 3.8 mmol/L (3.5-5.1)
[2022-07-31 05:21] LABS: Albumin 2.5 g/dL (3.4-5.0); BUN/Creatinine Ratio 29.1 (10.0-20.0); Bilirubin, Total 1.2 mg/dL (0.2-1.0); Calcium 9.4 mg/dL (8.5-10.1); Magnesium 2.3 mg/dL (1.6-2.6); Phosphorus 3.5 mg/dL (2.5-4.90); Total Protein 6.4 g/dL (6.4-8.2)
[2022-07-31] MEDS: NYSTATIN (MOUTH-THROAT) 500,000 UNITS/5 ML SUSP MT SCH ×4 (05:40→21:44)
[2022-07-31] MEDS: ACCU-CHEK COMFORT CURVE STRIP VI SCH ×3 (05:41→17:02)
[2022-07-31] MEDS: InsuLIN REG 1unit/0.01ml Soln (100units/ml) SC SCH ×3 (05:42→17:02)
[2022-07-31] MEDS: Ensure Pudding Vanilla 4 oz Cup PO SCH ×3 (07:48→17:02)
[2022-07-31] MEDS: SODIUM CHLOR 0.9% PF (SALINE LOCK) 10ML VIAL/SYR IV SCH ×2 (07:48→21:44)
[2022-07-31] MEDS: ALPRAZolam 0.25 MG TAB PO PRN (07:49)
[2022-07-31] MEDS: PANTOPRAZOLE 40 MG/10 ML VIAL INJ IV SCH (07:49)
[2022-07-31] MEDS: ZINC SULFATE 220mg CAP or TAB PO SCH (07:49)
[2022-07-31] MEDS: GABAPENTIN 100 MG CAP PO SCH (07:50)
[2022-07-31] MEDS: METOPROLOL TARTRATE 50 MG TAB PO SCH ×2 (07:50→21:45)
[2022-07-31] MEDS: FUROSEMIDE 20 MG TAB PO SCH (07:51)
[2022-07-31] MEDS: FLORASTOR (S. BOULARDII) 250 MG CAP PO SCH (07:51)
[2022-07-31] MEDS: ACETAMINOPHEN 325 MG TAB PO PRN ×2 (07:51→18:10)
[2022-07-31] MEDS: ASPirin 81 mg TAB PO SCH (07:52)
[2022-07-31] MEDS: amLODIPine BESYLATE 5 MG TAB PO SCH (07:55)
[2022-07-31] MEDS: MEGESTROL ACET 400MG/10ML ORAL SUSP PO SCH ×2 (08:55→21:45)
[2022-07-31] MEDS ORDERED: LIDOCAINE LEFT EAR PRN (10:00)
[2022-07-31 10:49] LABS: Basophils # (auto) 0 10 ^3/uL (0-0.2); Eosinophils # (auto) 0.1 10 ^3/uL (0-0.8); Eosinophils % (auto) 1.2 % (0.0-7.0); Hemoglobin 7.9 g/dL (12.2-16.2)
[2022-07-31 10:51] LABS: Basophils % (auto) 0.6 % (0.0-2.0); Hematocrit 27.5 % (36.0-46.0); Lymphocytes % (auto) 14.7 % (10.0-50.0); Mean Corpuscular Hemoglobin 30.9 pg (28.0-32.0); Mean Corpuscular Hgb Conc. 28.9 g/dL (32.0-36.0); Mean Corpuscular Volume 106.8 fL (80.0-100.0); Monocytes # (auto) 1.1 10 ^3/uL (0-1.3); Monocytes % (auto) 15.3 % (0.0-12.0); Neutrophils # (auto) 4.8 10 ^3/uL (1.6-8.6); Neutrophils % (auto) 68.2 % (37.0-80.0); Nucleated Red Blood Cells % 0.2 %; Red Blood Cells 2.57 10^6/uL (4.0-5.20)
[2022-07-31 10:52] LABS: Red Cell Distribution Width 22.8 % (11.8-14.3)
[2022-07-31] MEDS ORDERED: SODIUM FERR GLUC 62.5MG/5ML 125 MG in SODIUM CHL 0.9% 100 ML IV ONE (12:00)
[2022-07-31 16:57] LABS: Potassium 4.1 mmol/L (3.5-5.1)
[2022-07-31 16:58] LABS: BUN/Creatinine Ratio 121.6 (10.0-20.0); Calcium 8.2 mg/dL (8.5-10.1)
[2022-07-31] MEDS: TPN PER PHARMACY IV NR ×11 (19:49)
[2022-07-31] MEDS ORDERED: TPN PER PHARMACY IV NR ×11 (20:00)
[2022-07-31] MEDS: diphenhdrAMINE HCL 25 MG CAP PO PRN (21:47)
[2022-08-01] VITALS (15 sets, daily range): BP systolic 117–163; BP diastolic 60–78
[2022-08-01] MEDS: ACCU-CHEK COMFORT CURVE STRIP VI SCH ×5 (00:15→23:46)
[2022-08-01] MEDS: InsuLIN REG 1unit/0.01ml Soln (100units/ml) SC SCH ×5 (00:17→23:50)
[2022-08-01] MEDS: NYSTATIN (MOUTH-THROAT) 500,000 UNITS/5 ML SUSP MT SCH ×4 (06:08→22:23)
[2022-08-01 06:14] LABS: Potassium 4.2 mmol/L (3.5-5.1)
[2022-08-01 06:21] LABS: Albumin 1.6 g/dL (3.4-5.0); BUN/Creatinine Ratio 141.9 (10.0-20.0); Bilirubin, Total 0.5 mg/dL (0.2-1.0); Calcium 8.2 mg/dL (8.5-10.1); Magnesium 1.9 mg/dL (1.6-2.6); Phosphorus 3.8 mg/dL (2.5-4.90); Total Protein 5.1 g/dL (6.4-8.2)
[2022-08-01] MEDS: Ensure Pudding Vanilla 4 oz Cup PO SCH ×3 (08:00→18:05)
[2022-08-01] MEDS: FLORASTOR (S. BOULARDII) 250 MG CAP PO SCH ×2 (09:35→10:00)
[2022-08-01] MEDS: ENOXAPARIN SOD 40 MG/0.4 ML SYRINGE SC SCH (09:35)
[2022-08-01] MEDS: ASPirin 81 mg TAB PO SCH ×2 (09:35→10:00)
[2022-08-01] MEDS: FUROSEMIDE 20 MG TAB PO SCH (09:35)
[2022-08-01] MEDS: PANTOPRAZOLE 40 MG/10 ML VIAL INJ IV SCH (09:35)
[2022-08-01] MEDS: ZINC SULFATE 220mg CAP or TAB PO SCH ×2 (09:36→10:00)
[2022-08-01] MEDS: GABAPENTIN 100 MG CAP PO SCH ×2 (09:37→10:00)
[2022-08-01] MEDS: METOPROLOL TARTRATE 50 MG TAB PO SCH ×2 (09:37→22:20)
[2022-08-01] MEDS: amLODIPine BESYLATE 5 MG TAB PO SCH (09:38)
[2022-08-01] MEDS: MEGESTROL ACET 400MG/10ML ORAL SUSP PO SCH ×2 (10:00→22:23)
[2022-08-01] MEDS: SODIUM CHLOR 0.9% PF (SALINE LOCK) 10ML VIAL/SYR IV SCH ×2 (10:00→22:24)
[2022-08-01] MEDS ORDERED: TPN PER PHARMACY IV NR ×12 (20:00)
[2022-08-01] MEDS: diphenhdrAMINE HCL 25 MG CAP PO PRN (22:24)
[2022-08-02 05:00] VITALS: BP 125/67
[2022-08-02] MEDS: InsuLIN REG 1unit/0.01ml Soln (100units/ml) SC SCH ×3 (05:18→17:57)
[2022-08-02] MEDS: ACCU-CHEK COMFORT CURVE STRIP VI SCH ×3 (05:18→17:57)
[2022-08-02] MEDS: NYSTATIN (MOUTH-THROAT) 500,000 UNITS/5 ML SUSP MT SCH ×4 (05:25→22:06)
[2022-08-02 05:45] LABS: Albumin 1.7 g/dL (3.4-5.0); Potassium 4.1 mmol/L (3.5-5.1)
[2022-08-02 05:50] LABS: BUN/Creatinine Ratio 97.5 (10.0-20.0); Bilirubin, Total 0.6 mg/dL (0.2-1.0); Calcium 8.2 mg/dL (8.5-10.1); Magnesium 2.1 mg/dL (1.6-2.6); Phosphorus 3.6 mg/dL (2.5-4.90); Total Protein 5.5 g/dL (6.4-8.2)
[2022-08-02] MEDS: Ensure Pudding Vanilla 4 oz Cup PO SCH ×3 (07:32→17:57)
[2022-08-02 08:00] VITALS: BP 128/65
[2022-08-02] MEDS: MEGESTROL ACET 400MG/10ML ORAL SUSP PO SCH ×2 (10:00→22:00)
[2022-08-02] MEDS: PANTOPRAZOLE 40 MG/10 ML VIAL INJ IV SCH (11:00)
[2022-08-02] MEDS: ASPirin 81 mg TAB PO SCH (11:00)
[2022-08-02] MEDS: SODIUM CHLOR 0.9% PF (SALINE LOCK) 10ML VIAL/SYR IV SCH ×2 (11:00→22:06)
[2022-08-02] MEDS: ZINC SULFATE 220mg CAP or TAB PO SCH (11:01)
[2022-08-02] MEDS: FUROSEMIDE 20 MG TAB PO SCH (11:01)
[2022-08-02] MEDS: FLORASTOR (S. BOULARDII) 250 MG CAP PO SCH (11:01)
[2022-08-02] MEDS: GABAPENTIN 100 MG CAP PO SCH (11:02)
[2022-08-02] MEDS: METOPROLOL TARTRATE 50 MG TAB PO SCH ×2 (11:02→22:00)
[2022-08-02] MEDS: amLODIPine BESYLATE 5 MG TAB PO SCH (11:03)
[2022-08-02] MEDS: ENOXAPARIN SOD 40 MG/0.4 ML SYRINGE SC SCH (11:04)
[2022-08-02 12:30] VITALS: BP 96/59
[2022-08-02 16:00] VITALS: BP 113/67
[2022-08-02] MEDS ORDERED: TPN PER PHARMACY IV NR ×12 (20:00)
[2022-08-02 22:00] VITALS: BP 133/44
[2022-08-03] MEDS: ACCU-CHEK COMFORT CURVE STRIP VI SCH ×4 (00:12→18:41)
[2022-08-03 05:00] VITALS: BP 124/46
[2022-08-03] MEDS: InsuLIN REG 1unit/0.01ml Soln (100units/ml) SC SCH ×4 (06:09→18:00)
[2022-08-03] MEDS: NYSTATIN (MOUTH-THROAT) 500,000 UNITS/5 ML SUSP MT SCH ×4 (06:10→21:33)
[2022-08-03 06:32] LABS: Potassium 3.7 mmol/L (3.5-5.1)
[2022-08-03 06:52] LABS: Albumin 1.8 g/dL (3.4-5.0); BUN/Creatinine Ratio 112.2 (10.0-20.0); Bilirubin, Total 0.7 mg/dL (0.2-1.0); Calcium 8.1 mg/dL (8.5-10.1); Magnesium 1.9 mg/dL (1.6-2.6); Phosphorus 3.4 mg/dL (2.5-4.90); Total Protein 5.5 g/dL (6.4-8.2)
[2022-08-03 08:00] VITALS: BP 152/47
[2022-08-03] MEDS: PANTOPRAZOLE 40 MG/10 ML VIAL INJ IV SCH (10:55)
[2022-08-03] MEDS: ENOXAPARIN SOD 40 MG/0.4 ML SYRINGE SC SCH (10:58)
[2022-08-03] MEDS: ASPirin 81 mg TAB PO SCH (10:58)
[2022-08-03] MEDS: GABAPENTIN 100 MG CAP PO SCH (10:58)
[2022-08-03] MEDS: ZINC SULFATE 220mg CAP or TAB PO SCH (10:58)
[2022-08-03] MEDS: FLORASTOR (S. BOULARDII) 250 MG CAP PO SCH (10:58)
[2022-08-03] MEDS: FUROSEMIDE 20 MG TAB PO SCH (10:59)
[2022-08-03] MEDS: METOPROLOL TARTRATE 50 MG TAB PO SCH ×2 (10:59→13:28)
[2022-08-03] MEDS: Ensure Pudding Vanilla 4 oz Cup PO SCH ×3 (10:59→18:42)
[2022-08-03] MEDS: MEGESTROL ACET 400MG/10ML ORAL SUSP PO SCH ×2 (11:00→21:34)
[2022-08-03] MEDS: SODIUM CHLOR 0.9% PF (SALINE LOCK) 10ML VIAL/SYR IV SCH ×2 (11:00→21:57)
[2022-08-03 12:00] VITALS: BP 153/57
[2022-08-03] MEDS: amLODIPine BESYLATE 5 MG TAB PO SCH (12:11)
[2022-08-03 14:00] VITALS: BP 140/57
[2022-08-03 16:00] VITALS: BP 140/57
[2022-08-03] MEDS ORDERED: TPN PER PHARMACY IV NR ×12 (20:00)
[2022-08-03 22:00] VITALS: BP 139/66
[2022-08-04] MEDS: ACCU-CHEK COMFORT CURVE STRIP VI SCH ×4 (01:05→18:00)
[2022-08-04] MEDS: InsuLIN REG 1unit/0.01ml Soln (100units/ml) SC SCH ×4 (01:06→18:00)
[2022-08-04 05:00] VITALS: BP 152/47
[2022-08-04] MEDS: NYSTATIN (MOUTH-THROAT) 500,000 UNITS/5 ML SUSP MT SCH ×4 (05:54→21:47)
[2022-08-04 06:30] LABS: Albumin 1.8 g/dL (3.4-5.0); Calcium 8.3 mg/dL (8.5-10.1); Magnesium 1.8 mg/dL (1.6-2.6); Potassium 3.7 mmol/L (3.5-5.1)
[2022-08-04 06:34] LABS: Bilirubin, Total 0.7 mg/dL (0.2-1.0); Phosphorus 3.3 mg/dL (2.5-4.90); Total Protein 5.5 g/dL (6.4-8.2)
[2022-08-04 08:00] VITALS: BP 160/79
[2022-08-04] MEDS: Ensure Pudding Vanilla 4 oz Cup PO SCH ×3 (08:00→18:06)
[2022-08-04] MEDS: ENOXAPARIN SOD 40 MG/0.4 ML SYRINGE SC SCH (09:59)
[2022-08-04] MEDS: ASPirin 81 mg TAB PO SCH (09:59)
[2022-08-04] MEDS: SODIUM CHLOR 0.9% PF (SALINE LOCK) 10ML VIAL/SYR IV SCH ×2 (09:59→21:47)
[2022-08-04] MEDS: PANTOPRAZOLE 40 MG/10 ML VIAL INJ IV SCH (09:59)
[2022-08-04] MEDS: GABAPENTIN 100 MG CAP PO SCH (10:00)
[2022-08-04] MEDS: ZINC SULFATE 220mg CAP or TAB PO SCH (10:00)
[2022-08-04] MEDS: MEGESTROL ACET 400MG/10ML ORAL SUSP PO SCH ×2 (10:00→21:48)
[2022-08-04] MEDS: FLORASTOR (S. BOULARDII) 250 MG CAP PO SCH (10:00)
[2022-08-04] MEDS: FUROSEMIDE 20 MG TAB PO SCH (10:01)
[2022-08-04] MEDS: ACETAMINOPHEN 325 MG TAB PO PRN (10:01)
[2022-08-04] MEDS: amLODIPine BESYLATE 5 MG TAB PO SCH (10:02)
[2022-08-04] MEDS: METOPROLOL TARTRATE 50 MG TAB PO SCH ×2 (10:02→21:48)
[2022-08-04 12:05] VITALS: BP 152/70
[2022-08-04 16:00] VITALS: BP 162/84
[2022-08-04 22:00] VITALS: BP 141/55
[2022-08-04] MEDS: TPN PER PHARMACY IV NR ×12 (22:22)
[2022-08-05] MEDS: ACCU-CHEK COMFORT CURVE STRIP VI SCH ×4 (00:44→17:52)
[2022-08-05 05:00] VITALS: BP 155/62
[2022-08-05] MEDS: NYSTATIN (MOUTH-THROAT) 500,000 UNITS/5 ML SUSP MT SCH ×4 (05:44→22:10)
[2022-08-05] MEDS: hydrALAZINE HCL 20 MG/ML VL IV PRN (05:44)
[2022-08-05] MEDS: InsuLIN REG 1unit/0.01ml Soln (100units/ml) SC SCH ×4 (05:48→17:51)
[2022-08-05 06:03] LABS: Basophils # (auto) 0.1 10 ^3/uL (0-0.2); Eosinophils % (auto) 0.6 % (0.0-7.0); Hemoglobin 8.1 g/dL (12.2-16.2); Mean Corpuscular Hemoglobin 29.9 pg (28.0-32.0); Monocytes # (auto) 1.1 10 ^3/uL (0-1.3)
[2022-08-05 06:06] LABS: Basophils % (auto) 1.1 % (0.0-2.0); Eosinophils # (auto) 0.1 10 ^3/uL (0-0.8); Hematocrit 25.4 % (36.0-46.0); Lymphocytes # (auto) 1.7 10 ^3/uL (0.4-5.4); Lymphocytes % (auto) 20.6 % (10.0-50.0); Mean Corpuscular Hgb Conc. 31.9 g/dL (32.0-36.0); Mean Corpuscular Volume 93.7 fL (80.0-100.0); Monocytes % (auto) 13.4 % (0.0-12.0); Neutrophils # (auto) 5.3 10 ^3/uL (1.6-8.6); Neutrophils % (auto) 64.3 % (37.0-80.0); Nucleated Red Blood Cells % 0.1 %; Red Blood Cells 2.71 10^6/uL (4.0-5.20); White Blood Cell 8.2 10^3/uL (4.4-10.8)
[2022-08-05 06:17] LABS: Red Cell Distribution Width 20.9 % (11.8-14.3)
[2022-08-05] MEDS: Ensure Pudding Vanilla 4 oz Cup PO SCH ×3 (08:00→17:51)
[2022-08-05 09:02] VITALS: BP 103/47
[2022-08-05] MEDS: PANTOPRAZOLE 40 MG/10 ML VIAL INJ IV SCH (09:46)
[2022-08-05] MEDS: SODIUM CHLOR 0.9% PF (SALINE LOCK) 10ML VIAL/SYR IV SCH ×2 (09:47→22:29)
[2022-08-05] MEDS: amLODIPine BESYLATE 5 MG TAB PO SCH (09:47)
[2022-08-05] MEDS: FUROSEMIDE 20 MG TAB PO SCH (09:48)
[2022-08-05] MEDS: ENOXAPARIN SOD 40 MG/0.4 ML SYRINGE SC SCH (09:48)
[2022-08-05] MEDS: FLORASTOR (S. BOULARDII) 250 MG CAP PO SCH (09:48)
[2022-08-05] MEDS: ASPirin 81 mg TAB PO SCH (09:49)
[2022-08-05] MEDS: METOPROLOL TARTRATE 50 MG TAB PO SCH ×3 (09:49→22:22)
[2022-08-05] MEDS: GABAPENTIN 100 MG CAP PO SCH (09:49)
[2022-08-05] MEDS: MEGESTROL ACET 400MG/10ML ORAL SUSP PO SCH ×2 (12:24→22:14)
[2022-08-05 13:00] VITALS: BP 154/57
[2022-08-05 17:00] VITALS: BP 152/71
[2022-08-05] MEDS: TPN PER PHARMACY IV NR ×24 (19:54→20:30)
[2022-08-05 22:00] VITALS: BP 123/36
[2022-08-05] MEDS: ACETAMINOPHEN 325 MG TAB PO PRN (22:22)
[2022-08-06] MEDS: ACCU-CHEK COMFORT CURVE STRIP VI SCH ×5 (00:34→21:48)
[2022-08-06] MEDS: InsuLIN REG 1unit/0.01ml Soln (100units/ml) SC SCH ×5 (00:37→21:48)
[2022-08-06 05:00] VITALS: BP 127/45
[2022-08-06] MEDS: NYSTATIN (MOUTH-THROAT) 500,000 UNITS/5 ML SUSP MT SCH ×5 (06:15→22:00)
[2022-08-06 07:56] LABS: Potassium 3.5 mmol/L (3.5-5.1)
[2022-08-06 08:00] VITALS: BP 119/69
[2022-08-06] MEDS: Ensure Pudding Vanilla 4 oz Cup PO SCH ×3 (08:00→18:46)
[2022-08-06 08:02] LABS: Albumin 1.8 g/dL (3.4-5.0); BUN/Creatinine Ratio 114.6 (10.0-20.0); Bilirubin, Total 0.6 mg/dL (0.2-1.0); Calcium 8.4 mg/dL (8.5-10.1); Phosphorus 4.5 mg/dL (2.5-4.90); Total Protein 5.8 g/dL (6.4-8.2)
[2022-08-06] MEDS ORDERED: DEXTROSE (50%) 50ML SYRG IV PRN (08:15)
[2022-08-06] MEDS: PANTOPRAZOLE 40 MG/10 ML VIAL INJ IV SCH (09:57)
[2022-08-06] MEDS: GABAPENTIN 100 MG CAP PO SCH (10:00)
[2022-08-06] MEDS: ASPirin 81 mg TAB PO SCH (10:00)
[2022-08-06] MEDS: FLORASTOR (S. BOULARDII) 250 MG CAP PO SCH (10:00)
[2022-08-06] MEDS: CLOPIDOGREL BISULFATE 75 MG TAB PO SCH (10:00)
[2022-08-06] MEDS: amLODIPine BESYLATE 5 MG TAB PO SCH (10:00)
[2022-08-06] MEDS: METOPROLOL TARTRATE 50 MG TAB PO SCH ×2 (10:01→21:52)
[2022-08-06] MEDS: MEGESTROL ACET 400MG/10ML ORAL SUSP PO SCH ×3 (10:01→22:01)
[2022-08-06] MEDS: ENOXAPARIN SOD 40 MG/0.4 ML SYRINGE SC SCH (10:02)
[2022-08-06] MEDS: SODIUM CHLOR 0.9% PF (SALINE LOCK) 10ML VIAL/SYR IV SCH ×2 (11:40→20:55)
[2022-08-06 12:00] VITALS: BP 109/67
[2022-08-06 16:00] VITALS: BP 146/41
[2022-08-06] MEDS: TPN PER PHARMACY IV NR ×12 (20:17)
[2022-08-06] MEDS: diphenhdrAMINE HCL 25 MG CAP PO PRN (20:54)
[2022-08-06 22:00] VITALS: BP 119/70
[2022-08-07 05:00] VITALS: BP 137/64
[2022-08-07 05:33] LABS: Calcium 8.8 mg/dL (8.5-10.1); Potassium 3.6 mmol/L (3.5-5.1)
[2022-08-07] MEDS: NYSTATIN (MOUTH-THROAT) 500,000 UNITS/5 ML SUSP MT SCH ×4 (05:38→22:43)
[2022-08-07] MEDS: InsuLIN REG 1unit/0.01ml Soln (100units/ml) SC SCH (06:21)
[2022-08-07] MEDS: ACCU-CHEK COMFORT CURVE STRIP VI SCH (06:21)
[2022-08-07 08:00] VITALS: BP 135/76
[2022-08-07] MEDS: Ensure Pudding Vanilla 4 oz Cup PO SCH ×3 (08:56→22:45)
[2022-08-07] MEDS: PANTOPRAZOLE 40 MG/10 ML VIAL INJ IV SCH (09:19)
[2022-08-07] MEDS: ENOXAPARIN SOD 40 MG/0.4 ML SYRINGE SC SCH (09:19)
[2022-08-07] MEDS: amLODIPine BESYLATE 5 MG TAB PO SCH (09:20)
[2022-08-07] MEDS: CLOPIDOGREL BISULFATE 75 MG TAB PO SCH (09:20)
[2022-08-07] MEDS: FLORASTOR (S. BOULARDII) 250 MG CAP PO SCH (09:20)
[2022-08-07] MEDS: ASPirin 81 mg TAB PO SCH (09:20)
[2022-08-07] MEDS: GABAPENTIN 100 MG CAP PO SCH (09:20)
[2022-08-07] MEDS: METOPROLOL TARTRATE 50 MG TAB PO SCH ×2 (09:21→22:44)
[2022-08-07] MEDS: SODIUM CHLOR 0.9% PF (SALINE LOCK) 10ML VIAL/SYR IV SCH ×2 (11:06→22:45)
[2022-08-07] MEDS: MEGESTROL ACET 400MG/10ML ORAL SUSP PO SCH ×2 (11:06→22:44)
[2022-08-07 12:00] VITALS: BP 123/57
[2022-08-07 16:00] VITALS: BP 111/52
[2022-08-07 22:00] VITALS: BP 153/70
[2022-08-07] MEDS: ACETAMINOPHEN 325 MG TAB PO PRN (22:45)
[2022-08-08 05:00] VITALS: BP 128/50
[2022-08-08] MEDS: NYSTATIN (MOUTH-THROAT) 500,000 UNITS/5 ML SUSP MT SCH ×4 (05:53→22:07)
[2022-08-08] MEDS: Ensure Pudding Vanilla 4 oz Cup PO SCH ×3 (08:00→18:08)
[2022-08-08 09:00] VITALS: BP 140/74
[2022-08-08] MEDS: FLORASTOR (S. BOULARDII) 250 MG CAP PO SCH (09:02)
[2022-08-08] MEDS: GABAPENTIN 100 MG CAP PO SCH (09:02)
[2022-08-08] MEDS: ASPirin 81 mg TAB PO SCH (09:02)
[2022-08-08] MEDS: PANTOPRAZOLE 40 MG/10 ML VIAL INJ IV SCH (09:02)
[2022-08-08] MEDS: ENOXAPARIN SOD 40 MG/0.4 ML SYRINGE SC SCH (09:02)
[2022-08-08] MEDS: METOPROLOL TARTRATE 50 MG TAB PO SCH ×2 (09:03→22:08)
[2022-08-08] MEDS: CLOPIDOGREL BISULFATE 75 MG TAB PO SCH (09:03)
[2022-08-08] MEDS: amLODIPine BESYLATE 5 MG TAB PO SCH (09:03)
[2022-08-08] MEDS: SODIUM CHLOR 0.9% PF (SALINE LOCK) 10ML VIAL/SYR IV SCH ×2 (09:04→22:09)
[2022-08-08] MEDS: MEGESTROL ACET 400MG/10ML ORAL SUSP PO SCH ×2 (10:00→22:07)
[2022-08-08 13:00] VITALS: BP 139/46
[2022-08-08 16:39] VITALS: BP 124/70
[2022-08-08 22:00] VITALS: BP 149/65
[2022-08-09] MEDS: ACETAMINOPHEN 325 MG TAB PO PRN ×2 (00:50→21:11)
[2022-08-09 05:00] VITALS: BP 147/67
[2022-08-09] MEDS: NYSTATIN (MOUTH-THROAT) 500,000 UNITS/5 ML SUSP MT SCH ×4 (06:00→21:09)
[2022-08-09] MEDS: Ensure Pudding Vanilla 4 oz Cup PO SCH ×3 (08:00→18:00)
[2022-08-09 09:00] VITALS: BP 117/56
[2022-08-09] MEDS: ENOXAPARIN SOD 40 MG/0.4 ML SYRINGE SC SCH (09:36)
[2022-08-09] MEDS: CLOPIDOGREL BISULFATE 75 MG TAB PO SCH (09:36)
[2022-08-09] MEDS: GABAPENTIN 100 MG CAP PO SCH (09:36)
[2022-08-09] MEDS: ASPirin 81 mg TAB PO SCH (09:36)
[2022-08-09] MEDS: FLORASTOR (S. BOULARDII) 250 MG CAP PO SCH (09:36)
[2022-08-09] MEDS: PANTOPRAZOLE 40 MG/10 ML VIAL INJ IV SCH (09:36)
[2022-08-09] MEDS: amLODIPine BESYLATE 5 MG TAB PO SCH (09:37)
[2022-08-09] MEDS: METOPROLOL TARTRATE 50 MG TAB PO SCH ×2 (09:37→21:11)
[2022-08-09] MEDS: SODIUM CHLOR 0.9% PF (SALINE LOCK) 10ML VIAL/SYR IV SCH ×2 (09:38→22:00)
[2022-08-09] MEDS: MEGESTROL ACET 400MG/10ML ORAL SUSP PO SCH ×2 (10:00→21:16)
[2022-08-09 13:00] VITALS: BP 103/53
[2022-08-09 17:00] VITALS: BP 113/51
[2022-08-09] MEDS: diphenhdrAMINE HCL 25 MG CAP PO PRN (21:11)
[2022-08-09 22:00] VITALS: BP 159/58
[2022-08-10] MEDS: ACETAMINOPHEN 325 MG TAB PO PRN ×2 (01:56→18:16)
[2022-08-10 05:00] VITALS: BP 154/52
[2022-08-10] MEDS: NYSTATIN (MOUTH-THROAT) 500,000 UNITS/5 ML SUSP MT SCH ×4 (05:58→22:30)
[2022-08-10 08:00] VITALS: BP 110/60
[2022-08-10] MEDS: Ensure Pudding Vanilla 4 oz Cup PO SCH ×3 (08:00→18:00)
[2022-08-10] MEDS: amLODIPine BESYLATE 5 MG TAB PO SCH (09:43)
[2022-08-10] MEDS: CLOPIDOGREL BISULFATE 75 MG TAB PO SCH (09:43)
[2022-08-10] MEDS: FLORASTOR (S. BOULARDII) 250 MG CAP PO SCH (09:43)
[2022-08-10] MEDS: GABAPENTIN 100 MG CAP PO SCH (09:43)
[2022-08-10] MEDS: ASPirin 81 mg TAB PO SCH (09:43)
[2022-08-10] MEDS: PANTOPRAZOLE 40 MG/10 ML VIAL INJ IV SCH (09:44)
[2022-08-10] MEDS: METOPROLOL TARTRATE 50 MG TAB PO SCH ×2 (09:44→22:27)
[2022-08-10] MEDS: SODIUM CHLOR 0.9% PF (SALINE LOCK) 10ML VIAL/SYR IV SCH ×2 (09:44→22:30)
[2022-08-10] MEDS: ENOXAPARIN SOD 40 MG/0.4 ML SYRINGE SC SCH (09:44)
[2022-08-10] MEDS: MEGESTROL ACET 400MG/10ML ORAL SUSP PO SCH ×2 (09:45→22:30)
[2022-08-10] MEDS: TROLAMINE SALICYLATE 10% TOP CREAM TOP PRN ×2 (09:53→20:29)
[2022-08-10 12:00] VITALS: BP 101/61
[2022-08-10 16:00] VITALS: BP 112/50
[2022-08-10 22:00] VITALS: BP 127/53
[2022-08-10] MEDS: diphenhdrAMINE HCL 25 MG CAP PO PRN (22:30)
[2022-08-11] MEDS: NYSTATIN (MOUTH-THROAT) 500,000 UNITS/5 ML SUSP MT SCH ×4 (05:55→21:18)
[2022-08-11] MEDS: GABAPENTIN 100 MG CAP PO SCH (08:37)
[2022-08-11] MEDS: FLORASTOR (S. BOULARDII) 250 MG CAP PO SCH (08:37)
[2022-08-11] MEDS: ASPirin 81 mg TAB PO SCH (08:37)
[2022-08-11] MEDS: ENOXAPARIN SOD 40 MG/0.4 ML SYRINGE SC SCH (08:37)
[2022-08-11] MEDS: ACETAMINOPHEN 325 MG TAB PO PRN ×2 (08:37→20:39)
[2022-08-11] MEDS: CLOPIDOGREL BISULFATE 75 MG TAB PO SCH (08:37)
[2022-08-11] MEDS: PANTOPRAZOLE 40 MG/10 ML VIAL INJ IV SCH (08:40)
[2022-08-11] MEDS: SODIUM CHLOR 0.9% PF (SALINE LOCK) 10ML VIAL/SYR IV SCH ×2 (08:43→21:19)
[2022-08-11] MEDS: Ensure Pudding Vanilla 4 oz Cup PO SCH ×3 (08:43→18:20)
[2022-08-11] MEDS: amLODIPine BESYLATE 5 MG TAB PO SCH (08:45)
[2022-08-11] MEDS: METOPROLOL TARTRATE 50 MG TAB PO SCH ×2 (08:45→21:21)
[2022-08-11] MEDS: MEGESTROL ACET 400MG/10ML ORAL SUSP PO SCH ×2 (08:49→21:21)
[2022-08-11 09:00] VITALS: BP 120/64
[2022-08-11] MEDS: predniSONE 20 MG TAB PO SCH (11:25)
[2022-08-11 13:00] VITALS: BP 107/58
[2022-08-11 17:00] VITALS: BP 109/62
[2022-08-11 20:00] VITALS: BP 120/70
[2022-08-11 22:00] VITALS: BP 142/53
[2022-08-12 05:00] VITALS: BP 118/60
[2022-08-12] MEDS: NYSTATIN (MOUTH-THROAT) 500,000 UNITS/5 ML SUSP MT SCH ×4 (06:00→21:41)
[2022-08-12] MEDS: ONDANSETRON HCL 4 MG/2 ML VIAL IV PRN (06:00)
[2022-08-12 09:11] VITALS: BP 135/75
[2022-08-12] MEDS: CLOPIDOGREL BISULFATE 75 MG TAB PO SCH (10:12)
[2022-08-12] MEDS: PANTOPRAZOLE 40 MG/10 ML VIAL INJ IV SCH (10:12)
[2022-08-12] MEDS: predniSONE 20 MG TAB PO SCH (10:13)
[2022-08-12] MEDS: amLODIPine BESYLATE 5 MG TAB PO SCH (10:13)
[2022-08-12] MEDS: GABAPENTIN 100 MG CAP PO SCH (10:13)
[2022-08-12] MEDS: ASPirin 81 mg TAB PO SCH (10:13)
[2022-08-12] MEDS: MEGESTROL ACET 400MG/10ML ORAL SUSP PO SCH ×2 (10:14→21:42)
[2022-08-12] MEDS: FLORASTOR (S. BOULARDII) 250 MG CAP PO SCH (10:14)
[2022-08-12] MEDS: METOPROLOL TARTRATE 50 MG TAB PO SCH ×2 (10:14→22:00)
[2022-08-12] MEDS: Ensure Pudding Vanilla 4 oz Cup PO SCH ×3 (10:15→18:44)
[2022-08-12] MEDS: SODIUM CHLOR 0.9% PF (SALINE LOCK) 10ML VIAL/SYR IV SCH ×2 (10:15→21:41)
[2022-08-12] MEDS: ENOXAPARIN SOD 40 MG/0.4 ML SYRINGE SC SCH (10:15)
[2022-08-12 12:30] VITALS: BP 118/64
[2022-08-12 16:48] VITALS: BP 104/55
[2022-08-12 20:00] VITALS: BP 114/51
[2022-08-12] MEDS: ACETAMINOPHEN 325 MG TAB PO PRN (21:55)
[2022-08-12 22:00] VITALS: BP 121/53
[2022-08-13 05:00] VITALS: BP 134/64
[2022-08-13] MEDS: NYSTATIN (MOUTH-THROAT) 500,000 UNITS/5 ML SUSP MT SCH ×4 (05:17→21:09)
[2022-08-13 08:20] VITALS: BP 144/63
[2022-08-13] MEDS: Ensure Pudding Vanilla 4 oz Cup PO SCH ×3 (08:20→18:50)
[2022-08-13 09:00] VITALS: BP 144/63
[2022-08-13] MEDS: PANTOPRAZOLE 40 MG/10 ML VIAL INJ IV SCH (09:52)
[2022-08-13] MEDS: GABAPENTIN 100 MG CAP PO SCH (09:52)
[2022-08-13] MEDS: CLOPIDOGREL BISULFATE 75 MG TAB PO SCH (09:53)
[2022-08-13] MEDS: amLODIPine BESYLATE 5 MG TAB PO SCH (09:53)
[2022-08-13] MEDS: ASPirin 81 mg TAB PO SCH (09:53)
[2022-08-13] MEDS: predniSONE 20 MG TAB PO SCH (09:53)
[2022-08-13] MEDS: FLORASTOR (S. BOULARDII) 250 MG CAP PO SCH (09:53)
[2022-08-13] MEDS: SODIUM CHLOR 0.9% PF (SALINE LOCK) 10ML VIAL/SYR IV SCH ×2 (09:54→21:09)
[2022-08-13] MEDS: METOPROLOL TARTRATE 50 MG TAB PO SCH ×2 (09:57→21:17)
[2022-08-13] MEDS: MEGESTROL ACET 400MG/10ML ORAL SUSP PO SCH ×2 (10:04→21:09)
[2022-08-13 13:00] VITALS: BP 115/49
[2022-08-13 17:01] VITALS: BP 122/64
[2022-08-13] MEDS: LOPERAMIDE HCL 2 MG CAP/TAB PO PRN (21:17)
[2022-08-13 22:00] VITALS: BP 137/64
[2022-08-14] VITALS (7 sets, daily range): BP systolic 119–139; BP diastolic 43–70
[2022-08-14] MEDS: NYSTATIN (MOUTH-THROAT) 500,000 UNITS/5 ML SUSP MT SCH ×4 (05:03→21:58)
[2022-08-14] MEDS: Ensure Pudding Vanilla 4 oz Cup PO SCH ×3 (09:05→18:00)
[2022-08-14] MEDS: PANTOPRAZOLE 40 MG/10 ML VIAL INJ IV SCH (10:30)
[2022-08-14] MEDS: ASPirin 81 mg TAB PO SCH (10:31)
[2022-08-14] MEDS: CLOPIDOGREL BISULFATE 75 MG TAB PO SCH (10:31)
[2022-08-14] MEDS: FLORASTOR (S. BOULARDII) 250 MG CAP PO SCH (10:31)
[2022-08-14] MEDS: predniSONE 20 MG TAB PO SCH (10:31)
[2022-08-14] MEDS: GABAPENTIN 100 MG CAP PO SCH (10:31)
[2022-08-14] MEDS: SODIUM CHLOR 0.9% PF (SALINE LOCK) 10ML VIAL/SYR IV SCH ×2 (10:32→22:05)
[2022-08-14] MEDS: amLODIPine BESYLATE 5 MG TAB PO SCH (10:32)
[2022-08-14] MEDS: METOPROLOL TARTRATE 50 MG TAB PO SCH ×2 (10:32→22:00)
[2022-08-14] MEDS: MEGESTROL ACET 400MG/10ML ORAL SUSP PO SCH ×2 (11:33→21:58)
[2022-08-14] MEDS: ACETAMINOPHEN 325 MG TAB PO PRN (22:18)
[2022-08-15 05:00] VITALS: BP 120/58
[2022-08-15] MEDS: NYSTATIN (MOUTH-THROAT) 500,000 UNITS/5 ML SUSP MT SCH ×4 (05:16→21:55)
[2022-08-15 09:00] VITALS: BP 119/72
[2022-08-15] MEDS: MEGESTROL ACET 400MG/10ML ORAL SUSP PO SCH ×2 (09:00→21:55)
[2022-08-15] MEDS: PANTOPRAZOLE 40 MG/10 ML VIAL INJ IV SCH (09:00)
[2022-08-15] MEDS: ASPirin 81 mg TAB PO SCH (09:04)
[2022-08-15] MEDS: LOPERAMIDE HCL 2 MG CAP/TAB PO PRN (09:04)
[2022-08-15] MEDS: predniSONE 20 MG TAB PO SCH (09:04)
[2022-08-15] MEDS: CLOPIDOGREL BISULFATE 75 MG TAB PO SCH (09:05)
[2022-08-15] MEDS: GABAPENTIN 100 MG CAP PO SCH (09:05)
[2022-08-15] MEDS: FLORASTOR (S. BOULARDII) 250 MG CAP PO SCH (09:05)
[2022-08-15] MEDS: METOPROLOL TARTRATE 50 MG TAB PO SCH ×2 (09:10→22:03)
[2022-08-15] MEDS: amLODIPine BESYLATE 5 MG TAB PO SCH (09:10)
[2022-08-15] MEDS: Ensure Pudding Vanilla 4 oz Cup PO SCH ×3 (09:12→18:51)
[2022-08-15 13:00] VITALS: BP 126/68
[2022-08-15] MEDS: SODIUM CHLOR 0.9% PF (SALINE LOCK) 10ML VIAL/SYR IV SCH ×2 (15:27→22:04)
[2022-08-15 17:00] VITALS: BP 105/49
[2022-08-15] MEDS: ACETAMINOPHEN 325 MG TAB PO PRN (21:56)
[2022-08-15] MEDS: TROLAMINE SALICYLATE 10% TOP CREAM TOP PRN (21:59)
[2022-08-15 22:00] VITALS: BP 116/56
[2022-08-16 05:00] VITALS: BP 124/68
[2022-08-16] MEDS: NYSTATIN (MOUTH-THROAT) 500,000 UNITS/5 ML SUSP MT SCH ×4 (05:37→21:49)
[2022-08-16] MEDS: Ensure Pudding Vanilla 4 oz Cup PO SCH ×3 (08:00→18:01)
[2022-08-16 09:00] VITALS: BP 137/65
[2022-08-16] MEDS: MEGESTROL ACET 400MG/10ML ORAL SUSP PO SCH ×2 (09:37→21:49)
[2022-08-16] MEDS: PANTOPRAZOLE 40 MG/10 ML VIAL INJ IV SCH (09:37)
[2022-08-16] MEDS: amLODIPine BESYLATE 5 MG TAB PO SCH (09:38)
[2022-08-16] MEDS: METOPROLOL TARTRATE 50 MG TAB PO SCH ×2 (09:38→21:49)
[2022-08-16] MEDS: CLOPIDOGREL BISULFATE 75 MG TAB PO SCH (09:38)
[2022-08-16] MEDS: ASPirin 81 mg TAB PO SCH (09:38)
[2022-08-16] MEDS: GABAPENTIN 100 MG CAP PO SCH (09:38)
[2022-08-16] MEDS: predniSONE 20 MG TAB PO SCH (09:38)
[2022-08-16] MEDS: FLORASTOR (S. BOULARDII) 250 MG CAP PO SCH (09:40)
[2022-08-16] MEDS: SODIUM CHLOR 0.9% PF (SALINE LOCK) 10ML VIAL/SYR IV SCH ×2 (11:08→21:50)
[2022-08-16 13:10] VITALS: BP 129/58
[2022-08-16] MEDS: LOPERAMIDE HCL 2 MG CAP/TAB PO PRN (16:27)
[2022-08-16 17:05] VITALS: BP 136/68
[2022-08-16 21:49] VITALS: BP 119/60
[2022-08-16] MEDS: ACETAMINOPHEN 325 MG TAB PO PRN (23:20)
[2022-08-17 05:00] VITALS: BP 114/51
[2022-08-17] MEDS: NYSTATIN (MOUTH-THROAT) 500,000 UNITS/5 ML SUSP MT SCH ×2 (05:45→12:00)
[2022-08-17 08:00] VITALS: BP 120/60
[2022-08-17] MEDS: Ensure Pudding Vanilla 4 oz Cup PO SCH ×2 (08:00→12:00)
[2022-08-17] MEDS: SODIUM CHLOR 0.9% PF (SALINE LOCK) 10ML VIAL/SYR IV SCH (10:00)
[2022-08-17] MEDS ORDERED: ZINC SULFATE 220mg CAP or TAB PO SCH (10:00)
[2022-08-17] MEDS: METOPROLOL TARTRATE 50 MG TAB PO SCH (10:00)
[2022-08-17] MEDS: amLODIPine BESYLATE 5 MG TAB PO SCH (10:00)
[2022-08-17] MEDS ORDERED: ASCORBIC ACID 500 MG TAB PO SCH (10:00)
[2022-08-17] MEDS ORDERED: CHOLECALCIFEROL (VITD3) 2,000 UNIT CAP/TAB PO SCH (10:00)
[2022-08-17] MEDS: MEGESTROL ACET 400MG/10ML ORAL SUSP PO SCH (10:11)
[2022-08-17] MEDS: PANTOPRAZOLE 40 MG/10 ML VIAL INJ IV SCH (10:11)
[2022-08-17] MEDS: predniSONE 20 MG TAB PO SCH (10:12)
[2022-08-17] MEDS: GABAPENTIN 100 MG CAP PO SCH (10:12)
[2022-08-17] MEDS: ASPirin 81 mg TAB PO SCH (10:12)
[2022-08-17] MEDS: FLORASTOR (S. BOULARDII) 250 MG CAP PO SCH (10:13)
[2022-08-17] MEDS: CLOPIDOGREL BISULFATE 75 MG TAB PO SCH (10:13)
== END 2022-08-17 12:46 | DRG 137 ==
LOC: EDBD 17:31 → ER 17:31 → OVERFLOW 07-06 02:19 → DOU IN ICU 07-06 18:17 → TELE-WESTW 07-22 17:51 → DOU IN ICU 07-23 10:26 → TELE-CENTR 08-01 15:55 → CENTRAL 08-05 21:31
PROVIDERS: ADMIT Nurse Practitioner; ATTEND Family Medicine
PROC: 0W993ZZ Drainage of Right Pleural Cavity, Percutaneous Approach (ICD-10-PCS; 2022-07-06)
PROC: 05H933Z Insertion of Infusion Device into Right Brachial Vein, Percutaneous Approach (ICD-10-PCS; 2022-07-06)
PROC: B54MZZA Ultrasonography of Right Upper Extremity Veins, Guidance (ICD-10-PCS; 2022-07-06)
PROC: 5A09457 Assistance with Respiratory Ventilation, 24-96 Consecutive Hours, Continuous Positive Airway Pressure (ICD-10-PCS; 2022-07-06)
PROC: 30243N1 Transfusion of Nonautologous Red Blood Cells into Central Vein, Percutaneous Approach (ICD-10-PCS; principal; 2022-07-07)
PROC: XW033E5 Introduction of Remdesivir Anti-infective into Peripheral Vein, Percutaneous Approach, New Technology Group 5 (ICD-10-PCS; 2022-07-07)
PROC: 02HV33Z Insertion of Infusion Device into Superior Vena Cava, Percutaneous Approach (ICD-10-PCS; 2022-07-08)
DX: U07.1 COVID-19 (principal); J96.01 Acute respiratory failure with hypoxia; J12.82 Pneumonia due to coronavirus disease 2019; G72.81 Critical illness myopathy; E43 Unspecified severe protein-calorie malnutrition; D69.6 Thrombocytopenia, unspecified; G93.41 Metabolic encephalopathy; E83.51 Hypocalcemia; J81.1 Chronic pulmonary edema; E86.0 Dehydration; E87.1 Hypo-osmolality and hyponatremia; E88.09 Other disorders of plasma-protein metabolism, not elsewhere classified; J44.0 Chronic obstructive pulmonary disease with (acute) lower respiratory infection; J44.1 Chronic obstructive pulmonary disease with (acute) exacerbation; J90 Pleural effusion, not elsewhere classified; E11.9 Type 2 diabetes mellitus without complications; I25.10 Atherosclerotic heart disease of native coronary artery without angina pectoris; Z85.3 Personal history of malignant neoplasm of breast; Z68.25 Body mass index [BMI] 25.0-25.9, adult; D64.9 Anemia, unspecified
CPT/HCPCS: 36415; 36569; 36600; 71045; 71275; 76604; 76705; 76942; 80048; 80053; 80202; 81001; 82270; 82306; 82607; 82728; 82746; 82805; 82962; 83540; 83550; 83605; 83615; 83735; 83880; 84100; 84478; 84484; 85025; 85379; 85610; 85730; 86850; 86900; 86901; 86920; 87040; 87081; 87086; 87088; 87205; 87426; 87493; 89051; 93005; 93306; 93970; 94640; 94660; 96365; 96366; 96375; 97110; 97116; 97163; 97530; 99291; C9113; G0378; J0696; J1100; J1815; J2248; J2405; J3480; J3490; J7060; J7131; P9047